=== PATIENT | female | born 1945 | race Caucasian/White ===

== ENCOUNTER 2022-07-12 12:33 | Emergency (ER) | payer MEDICARE ==
[2022-07-12 12:40] VITALS: TEMP 97.8
[2022-07-12] MEDS ORDERED: DIPH,PERTUS(ACELL)TETVAC-LF 0.5 ML VIAL IM ONE (12:52)
--- NOTE | 2022-07-12 12:55 | ED ---
Wound/Laceration HPI - General Chief Complaint: Wound/Laceration Stated Complaint: fall, facial lac Time Seen by Provider: 07/12/22 12:46 Source: patient, family, RN notes reviewed, old records reviewed Mode of arrival: wheelchair Limitations: no limitations - History of Present Illness Initial Comments: This is a well-appearing 77-year-old female that presents to the emergency room with complaints of a scalp laceration she sustained after she fell forward off the toilet hitting her head on the bathtub. Patient did not lose consciousness. She states that she had been sitting on the toilet for long period of time and her legs were asleep. When she stood up she had decreased sensation which caused the fall. She states that she has no complaints at this time. Does not take any blood thinners. -: hour(s) (1) Location: scalp Place: home Patient Tetanus UTD: No Context: accidental Associated Symptoms: none - Related Data Home Medications Medication Instructions Recorded Confirmed Cholecalciferol [Vitamin D3] 1,000 unit PO DAILY 04/13/16 04/13/16 Fish Oil/Dha/Epa [Fish Oil 1,200 1 cap PO DAILY 04/13/16 04/13/16 mg Fish Oil] Multivit-Min/Iron/Folic/Lutein 1 tab PO DAILY 04/13/16 04/13/16 [Centrum Silver Women Tablet] Previous Rx's Medication Instructions Recorded Ferrous Sulfate [Iron (65 MG 325 mg PO DAILY #30 tab 11/01/15 Elemental)] Atorvastatin [Lipitor] 40 mg PO HS 30 Days #30 tablet 07/12/22 amLODIPine [Norvasc] 5 mg PO DAILY 30 Days #30 tab 07/12/22 Allergies Allergy/AdvReac Type Severity Reaction Status Date / Time No Known Allergies Allergy Verified 04/13/16 11:16 Review of Systems ROS Statement: Those systems with pertinent positive or pertinent negative responses have been documented in the HPI. ROS Other: All systems not noted in ROS Statement are negative. 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 History of Any Multi-Drug Resistant Organisms: None Reported Past Surgical History: Appendectomy, Back Surgery, Joint Replacement, Orthopedic Surgery, Tonsillectomy Additional Past Surgical History / Comment(s): R knee arthroscopy, right knee replacement, BACK SURG X2, COLONOSCOPIES with last one done 12/11/15. EXC Benign LT Facial Tumor, D&C, R popliteal subcutaneous mass removed twice and ano ther has formed. Past Anesthesia/Blood Transfusion Reactions: No Reported Reaction Additional Past Anesthesia/Blood Transfusion Reaction / Comment(s): Pt has received blood without reaction. Past Psychological History: No Psychological Hx Reported Past Alcohol Use History: None Reported Past Drug Use History: None Reported - Past Family History Father Family Medical History: Cancer Additional Family Medical History / Comment(s): BRAIN, LUNG, LIVER, AND SPLEEN CANCER. Mother Family Medical History: Hypertension General Exam Limitations: no limitations General appearance: alert, in no apparent distress Head exam: Present: other (2 cm laceration mid frontal scalp) Eye exam: Present: normal appearance, EOMI. Absent: scleral icterus, conjunctival injection, periorbital swelling, periorbital tenderness ENT exam: Present: mucous membranes moist Neck exam: Absent: tenderness, meningismus Respiratory exam: Absent: respiratory distress, accessory muscle use Cardiovascular Exam: Present: regular rate Neurological exam: Present: alert, oriented X3 Expanded Patient oriented to: Present: person, place, time Speech: Present: fluid speech Eye Response: (4) open spontaneously Motor Response: (6) obeys commands Verbal Response: (5) oriented [place] Total: 15 Psychiatric exam: Present: normal affect, normal mood Skin exam: Present: warm, normal color, other (2 cm laceration mid frontal scalp minimal bleeding). Absent: cyanosis, diaphoretic, petechiae, pallor Course Vital Signs 07/12/22 07/12/22 12:37 14:30 Temperature 97.8 F Pulse Rate 94 80 Respiratory 20 18 Rate Blood Pressure 140/92 132/78 O2 Sat by Pulse 94 L 100 Oximetry Medical Decision Making - Medical Decision Making Patient fell forward off the toilet today hitting her head on the bathtub. No loss of consciousness. States that her legs fell asleep while sitting on the toilet which led to the fall. She sustained a laceration to her scalp. Bleeding is controlled. She is not on any blood thinners. She denies any other injuries. Family at bedside. Vital signs are stable. CT interpreted by me shows no evidence of fracture or foreign body. Radiologist impression no acute intracranial process. There is some mild ventricular white matter hypodensity likely on the basis of chronic white matter ischemic changes. No mass lesion evident. No acute intracranial hemorrhage. 3 pavithra were placed to close wound after copious saline irrigation. Patient has no focal neurological deficits. Discharged home. Prescription for atorvastatin amlodipine prescribed his patient states unable to get into her primary care doctor. Case discussed with Dr. Ventura Disposition Clinical Impression: Laceration Disposition: HOME SELF-CARE Condition: Good Additional Instructions: Keep wound clean and dry. Pavithra to be removed in 5-7 days. Watch for signs of infection including redness or drainage. Follow-up with the primary care doctor next week. Prescriptions: Atorvastatin [Lipitor] 40 mg PO HS 30 Days #30 tablet amLODIPine [Norvasc] 5 mg PO DAILY 30 Days #30 tab Is patient prescribed a controlled substance at d/c from ED?: No Referrals: None,Stated [Primary Care Provider] - 1-2 days Time of Disposition: 13:34
--- NOTE | 2022-07-12 13:31 | CT ---
EXAMINATION TYPE: CT brain wo con DATE OF EXAM: 07/12/2022 COMPARISON: INDICATION: Fall from toilet DLP: 1349.8 mGycm, Automated exposure control for dose reduction was used. CONTRAST: None CT of the brain is performed utilizing 3 mm thick sections through the posterior fossa and 3 mm thick sections through the remaining calvarium. Study is performed within 24 hours of arrival to the hosp ital. No abnormal hyperdensity is present to suggest an acute intracranial hemorrhage. No mass lesion is evident. No acute infarcts are evident. There is some mild periventricular white matter hypodensity, likely on the basis of chronic white matter ischemic changes Ventricles and sulci are appropriate for the patient age. Paranasal sinuses and mastoid air cells within the [id number] are clear. IMPRESSIONS: 1. No acute intracranial process. Follow-up MRI can be performed as clinically indicated. 2. Mild periventricular white matter ischemic type changes
[2022-07-12] MEDS ORDERED: BACITRACIN OINT 1 EACH PACKET TOPICAL ONE (13:32)
[2022-07-12 14:31] VITALS: BP 132/78; PULSE 80; RESP 18
== END 2022-07-12 14:31 | disposition home or self-care (01) ==
LOC: EC 12:33
DX: S01.01XA Laceration without foreign body of scalp, initial encounter (principal); M19.90 Unspecified osteoarthritis, unspecified site; Z79.899 Other long term (current) drug therapy; Z23 Encounter for immunization; W18.11XA Fall from or off toilet without subsequent striking against object, initial encounter
CPT/HCPCS: 12001; 70450; 90471; 90715; 99284

== ENCOUNTER 2023-08-28 18:44 | Inpatient (IN) | payer MEDICARE ==
--- NOTE | 2023-08-28 18:56 | ED ---
General Adult HPI - General Source: patient, family Mode of arrival: wheelchair Limitations: no limitations <Judie Sauceda - Last Filed: 08/28/23 18:55> <Cristian Ventura - Last Filed: 08/28/23 21:47> - General Stated complaint: SOB Time Seen by Provider: 08/28/23 18:55 - History of Present Illness Initial comments: 78-year-old female presenting with chief complaint of shortness of breath. She states that she went to urgent care earlier today and was told that she had fluid in her lungs. She then went to [facility] and states "they had no beds". She admits to lower extremity edema and history of CHF (Judie Sauceda) Dictation was produced using [employer] dictation software. please excuse any grammatical, word or spelling errors. Chief Complaint: 78-year-old female presents to the ER for alleges a new onset cardiomyopathy History of Present Illness: Patient 78-year-old female for the last several days she has been dealing with orthopnea along with lower extremity swelling. Patient has no history of cardiac disease. She initially went to an urgent care where they told her that she had fluid on her lungs and her legs. She was told to go to the emergency department. She initially reported to [facility] emergency department. They were told that there was no docs in the hospital and no beds for admission. Family was upset so he decided to leave come to our facility. Patient states she does not have any chest pain. States that she have some mild shortness of breath. States that it is worse when she lays flat. She also noted over the last 3 to 4 days that her legs were swollen. The ROS documented in this emergency department record has been reviewed and confirmed by me. Those systems with pertinent positive or negative responses have been documented in the HPI. All other systems are other negative and/or noncontributory. (Cristian Ventura) - Related Data Home Medications Medication Instructions Recorded Confirmed No Known Home Medications 08/28/23 08/28/23 Allergies Allergy/AdvReac Type Severity Reaction Status Date / Time No Known Allergies Allergy Verified 08/28/23 21:20 Review of Systems ROS Other: All systems not noted in ROS Statement are negative. <Judie Sauceda - Last Filed: 08/28/23 18:55> ROS Other: All systems not noted in ROS Statement are negative. <Cristian Ventura - Last Filed: 08/28/23 21:47> ROS Statement: Those systems with pertinent positive or pertinent negative responses have been documented in the HPI. 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 History of Any Multi-Drug Resistant Organisms: None Reported Past Surgical History: Appendectomy, Back Surgery, Joint Replacement, Orthopedic Surgery, Tonsillectomy Additional Past Surgical History / Comment(s): R knee arthroscopy, right knee replacement, BACK SURG X2, COLONOSCOPIES with last one done 12/11/15. EXC Benign LT Facial Tumor, D&C, R popliteal subcutaneous mass removed twice and another has formed. Past Anesthesia/Blood Transfusion Reactions: No Reported Reaction Additional Past Anesthesia/Blood Transfusion Reaction / Comment(s): Pt has received blood without reaction. Past Psychological History: No Psychological Hx Reported Past Alcohol Use History: None Reported Past Drug Use History: None Reported - Past Family History Father Family Medical History: Cancer Additional Family Medical History / Comment(s): BRAIN, LUNG, LIVER, AND SPLEEN CANCER. Mother Family Medical History: Hypertension <Judie Sauceda - Last Filed: 08/28/23 18:55> General Exam <Judie Sauceda - Last Filed: 08/28/23 18:55> <Cristian Ventura - Last Filed: 08/28/23 21:47> - General Exam Comments Initial Comments: Visual Physical Exam Vital signs reviewed General: Well-appearing, nontoxic, no acute distress. Head: Normocephalic, atraumatic Eyes: PERRLA, EOMI ENT: Airway patent Chest: Nonlabored breathing Skin: No visual rash, normal skin tone Neuro: Alert and oriented 3 Musculoskeletal: No gross abnormalities (Judie Sauceda) PHYSICAL EXAM: General Impression: Alert and oriented x3, not in acute distress HEENT: Normocephalic atraumatic, extra-ocular movements intact, pupils equal and reactive to light bilaterally, mucous membranes moist. Cardiovascular: Heart regular rate and rhythm Chest: Able to complete full sentences, no retractions, no tachypnea Abdomen: abdomen soft, non-tender, non-distended, no organomegaly Musculoskeletal: Pulses present and equal in all extremities, 2+ pitting edema to the bilateral lower extremities Motor: no focal deficits noted Neurological: CN II-XII grossly intact, no focal motor or sensory deficits noted Skin: Intact with no visualized rashes Psych: Normal affect and mood (Cristian Ventura) Course Vital Signs 08/28/23 08/28/23 19:03 19:57 Temperature 98.1 F Pulse Rate 90 80 Respiratory 20 18 Rate Blood Pressure 150/82 O2 Sat by Pulse 93 L 94 L Oximetry EKG Findings - EKG Comments: EKG Findings:: My EKG interpretation: Ventricular rate 80, sinus rhythm,. 156, cures 94, QTc 439. No MT prolongation, no QTC prolongation, no ST or T-wave changes noted. EKG compared to October 28, 2015 showing no changes. Overall, this EKG is unremarkable <Cristian Ventura - Last Filed: 08/28/23 21:47> Medical Decision Making <Judie Sauceda - Last Filed: 08/28/23 18:55> - Lab Data Result diagrams: 08/28/23 19:20 08/28/23 19:20 <Cristian Ventura - Last Filed: 08/28/23 21:47> - Medical Decision Making I performed the quick note portion of this visit, electronically signed Judie Sauceda PA-C (Judie Sauceda) Was pt. sent in by a medical professional or institution ([facility], OBSERVER HELPER, urgent care, hospital, or halfway...) When possible be specific @ -No Did you speak to anyone other than the patient for history (EMS, parent, family, police, friend...)? What history was obtained from this source @ -Family was at the bedside as discussed above Did you review nursing and triage notes (agree or disagree)? Why? @ -I reviewed and agree with nursing and triage notes Were old charts reviewed (outside hosp., previous admission, EMS record, old EKG, old radiological studies, urgent care reports/EKG's, halfway records)? Report findings @ -No old charts were reviewed Differential Diagnosis (chest pain, altered mental status, abdominal pain women, abdominal pain men, vaginal bleeding, musculoskeletal, weakness, fever, dyspnea, syncope, headache, dizziness, GI bleed, back pain, seizure, CVA, palpatations, mental health)? @ -Differential Dyspnea: Coronary syndrome, arrhythmia, tamponade, asthma, COPD, pulmonary embolism, pneumonia, pneumothorax, pulmonary effusion, anaphylaxis, diabetic ketoacidosis, flailed chest, pulmonary contusion, diaphragmatic rupture, anemia, neuromuscular, this is not meant to be an all-inclusive list. EKG interpreted by me (3pts min.). @ -See above X-rays interpreted by me (1pt min.). @ -Chest x-ray shows cardiomegaly and pulmonary vascular congestion CT interpreted by me (1pt min.). @ -None done U/S interpreted by me (1pt. min.). @ -None done What testing was considered but not performed or refused? (CT, X-rays, U/S, labs)? Why? @ -None What meds were considered but not given or refused? Why? @ -None Did you discuss the management of the patient with other professionals (professionals i.e. , PA, OBSERVER HELPER, lab, RT, psych nurse, social worker assistant, scrap collector, teacher, health promotion officer, pillowcase cutter)? Give summary @ -Case discussed with hospitalist for admission Was smoking cessation discussed for >3mins.? @ -No Was critical care preformed (if so, how long)? @ -yes, 33 minutes Were there social determinants of health that impacted care today? How? (Homelessness, low income, unemployed, alcoholism, drug addiction, transportation, low edu. Level, literacy, decrease access to med. care, [facility], rehab)? @ -No Was there de-escalation of care discussed even if they declined (Discuss DNR or withdrawal of care, Hospice)? DNR status @ -No What co-morbidities impacted this encounter? (DM, HTN, Smoking, COPD, CAD, Cancer, CVA, ARF, Chemo, Hep., AIDS, mental health diagnosis, sleep apnea, morbid obesity)? @ -None Was patient admitted / discharged? Hospital course, mention meds given and route, prescriptions, significant lab abnormalities, going to OR and other p ertinent info. @ -78-year-old female presents to the emergency department for shortness of breath. She has symptoms of heart failure. Vital signs are stable. Laboratory evaluation obtained. Troponin elevated 0.048 with a BNP of 6890. Patient has no history of cardiac disease. Clinical presentation consistent with new onset cardiomyopathy. Patient admitted given aspirin and started on heparin given Lasix. Will be admitted with consultation to cardiology. Undiagnosed new problem with uncertain prognosis? @ -No Drug Therapy requiring intensive monitoring for toxicity (Heparin, Nitro, In sulin, Cardizem)? @ -No Were any procedures done? @ -No Diagnosis/symptom? Acute, or Chronic, or Acute on Chronic? Uncomplicated (without systemic symptoms) or Complicated (systemic symptoms)? @ -New onset cardiomyopathy Side effects of treatment? @ -No Exacerbation, Progression, or Severe Exacerbation? @ -No Poses a threat to life or bodily function? How? (Chest pain, [place], [place], pneumonia, PE, COPD, DKA, ARF, appy, cholecystitis, CVA, Diverticulitis, Homicidal, Suicidal, threat to staff... and all critical care pts) @ -yes (Cristian Ventura) - Lab Data Lab Results 08/28/23 08/28/23 08/28/23 Range/Units 19:20 19:20 19:20 WBC 10.5 (3.8-10.6) k/uL RBC 4.53 (3.80-5.40) m/uL Hgb 14.4 (11.4-16.0) gm/dL Hct 43.7 (34.0-46.0) % MCV 96.4 (80.0-100.0) fL MCH 31.8 (25.0-35.0) pg MCHC 33.0 (31.0-37.0) g/dL RDW 13.2 (11.5-15.5) % Plt Count 214 (150-450) k/uL MPV 11.1 Neutrophils % 54 % Lymphocytes % 37 % Monocytes % 6 % Eosinophils % 1 % Basophils % 1 % Neutrophils # 5.7 (1.3-7.7) k/uL Lymphocytes # 3.9 (1.0-4.8) k/uL Monocytes # 0.6 (0-1.0) k/uL Eosinophils # 0.1 (0-0.7) k/uL Basophils # 0.1 (0-0.2) k/uL PT 11.4 (10.0-12.5) sec INR 1.0 (<1.2) APTT 28.1 (22.0-30.0) sec Sodium 142 (137-145) mmol/L Potassium 3.5 (3.5-5.1) mmol/L Chloride 109 H (98-107) mmol/L Carbon Dioxide 24 (22-30) mmol/L Anion Gap 9 mmol/L BUN 12 (7-17) mg/dL Creatinine 0.51 L (0.52-1.04) mg/dL Est GFR (CKD-EPI)AfAm >90 (>60 ml/min/1.73 sqM) Est GFR (CKD-EPI)NonAf >90 (>60 ml/min/1.73 sqM) Glucose 93 (74-99) mg/dL Plasma Lactic Acid [place] (0.7-2.0) mmol/L Calcium 9.4 (8.4-10.2) mg/dL Magnesium 1.9 (1.6-2.3) mg/dL Total Bilirubin 0.9 (0.2-1.3) mg/dL AST 27 (14-36) U/L ALT 10 (4-34) U/L Alkaline Phosphatase 76 (38-126) U/L Troponin I (0.000-0.034) ng/mL NT-Pro-B Natriuret Pep 6890 pg/mL Total Protein 7.2 (6.3-8.2) g/dL Albumin 4.2 (3.5-5.0) g/dL 08/28/23 08/28/23 Range/Units 19:20 19:20 WBC (3.8-10.6) k/uL RBC (3.80-5.40) m/uL Hgb (11.4-16.0) gm/dL Hct (34.0-46.0) % MCV (80.0-100.0) fL MCH (25.0-35.0) pg MCHC (31.0-37.0) g/dL RDW (11.5-15.5) % Plt Count (150-450) k/uL MPV Neutrophils % % Lymphocytes % % Monocytes % % Eosinophils % % Basophils % % Neutrophils # (1.3-7.7) k/uL Lymphocytes # (1.0-4.8) k/uL Monocytes # (0-1.0) k/uL Eosinophils # (0-0.7) k/uL Basophils # (0-0.2) k/uL PT (10.0-12.5) sec INR (<1.2) APTT (22.0-30.0) sec Sodium (137-145) mmol/L Potassium (3.5-5.1) mmol/L Chloride (98-107) mmol/L Carbon Dioxide (22-30) mmol/L Anion Gap mmol/L BUN (7-17) mg/dL Creatinine (0.52-1.04) mg/dL Est GFR (CKD-EPI)AfAm (>60 ml/min/1.73 sqM) Est GFR (CKD-EPI)NonAf (>60 ml/min/1.73 sqM) Glucose (74-99) mg/dL Plasma Lactic Acid [place] 1.2 (0.7-2.0) mmol/L Calcium (8.4-10.2) mg/dL Magnesium (1.6-2.3) mg/dL Total Bilirubin (0.2-1.3) mg/dL AST (14-36) U/L ALT (4-34) U/L Alkaline Phosphatase (38-126) U/L Troponin I 0.048 H* (0.000-0.034) ng/mL NT-Pro-B Natriuret Pep pg/mL Total Protein (6.3-8.2) g/dL Albumin (3.5-5.0) g/dL Disposition <Judie Sauceda - Last Filed: 08/28/23 18:55> Is patient prescribed a controlled substance at d/c from ED?: No Decision Time: 21:46 <Cristian Ventura - Last Filed: 08/28/23 21:47> Clinical Impression: Congestive heart failure Disposition: ADMITTED IP TO THIS HOSP Condition: Fair Referrals: None,Stated [Primary Care Provider] - 1-2 days
[2023-08-28 19:36] LABS: Basophils # (A) 0.1 k/uL (0-0.2); Basophils % (A) 1 %; Eosinophils # (A) 0.1 k/uL (0-0.7); Eosinophils % (A) 1 %; HCT 43.7 % (34.0-46.0); HGB 14.4 gm/dL (11.4-16.0); Lymphocytes # (A) 3.9 k/uL (1.0-4.8); Lymphocytes % (A) 37 %; MCH 31.8 pg (25.0-35.0); MCV 96.4 fL (80.0-100.0); Mean Platelet Volume 11.1; Monocytes # (A) 0.6 k/uL (0-1.0); Monocytes % (A) 6 %; Neutrophils # (A) 5.7 k/uL (1.3-7.7); Neutrophils % (A) 54 %; Platelet Count 214 k/uL (150-450); RBC 4.53 m/uL (3.80-5.40); RDW 13.2 % (11.5-15.5); WBC 10.5 k/uL (3.8-10.6)
[2023-08-28 19:45] LABS: Partial Thromboplastin Time 28.1 sec (22.0-30.0); Prothrombin Time 11.4 sec (10.0-12.5)
[2023-08-28 20:03] LABS: ALT 10 U/L (4-34); African American GFR (CKD) >90 (>60 ml/min/1.73 sqM); Albumin 4.2 g/dL (3.5-5.0); Anion Gap 9 mmol/L; Blood Urea Nitrogen 12 mg/dL (7-17); Calcium 9.4 mg/dL (8.4-10.2); Carbon Dioxide 24 mmol/L (22-30); Chloride 109 mmol/L (98-107); Glucose 93 mg/dL (74-99); Non-African American GFR(CKD) >90 (>60 ml/min/1.73 sqM); Sodium 142 mmol/L (137-145); Total Bilirubin 0.9 mg/dL (0.2-1.3); Total Protein 7.2 g/dL (6.3-8.2)
[2023-08-28 20:08] LABS: AST 27 U/L (14-36); Alkaline Phosphatase 76 U/L (38-126); Potassium 3.5 mmol/L (3.5-5.1)
[2023-08-28 20:09] LABS: Magnesium 1.9 mg/dL (1.6-2.3)
[2023-08-28 20:12] LABS: NT-Pro-B-Type Natriuretic Pept 6890 pg/mL
[2023-08-28] MEDS ORDERED: HEPARIN SODIUM 1,000 UN/ML (10ML VL) IV PRN (21:24)
--- NOTE | 2023-08-28 21:26 | XR ---
EXAMINATION TYPE: XR chest 2V DATE OF EXAM: 08/28/2023 9:23 PM CLINICAL INDICATION:Female, 78 years old with history of difficulty breathing; [facility] COMPARISON: Chest radiographs from 10/28/2015. TECHNIQUE: XR chest 2V Frontal and lateral views of the chest. FINDINGS: Lungs/Pleura: No evidence of focal consolidation or pneumothorax. Blunting of the costophrenic angles is present. Pulmonary vascularity: Pulmonary vascular congestion. Heart/mediastinum: Cardiomediastinal silhouette is enlarged and stable. Atherosclerotic calcificatio ns are seen in the aorta. Musculoskeletal: No acute osseous pathology. There is lower spine fixation hardware is present. IMPRESSION: Cardiomegaly, pulmonary vascular congestion and bilateral pleural effusions. Correlate with BNP for c ongestive heart failure.
[2023-08-28] MEDS: FUROSEMIDE 10 MG/ML 4 ML VIAL IV SCH (21:47)
[2023-08-28] MEDS: HEPARIN SODIUM 1,000 UN/ML (10ML VL) IV ONE (22:34)
[2023-08-28] MEDS: HEPARIN SOD,PORK IN 0.45% NACL 25,000 UNIT in 0.45% NACL 1 250ML.BAG IV SCH (22:35)
[2023-08-28] MEDS: ASPIRIN 81 MG PO STA (22:37)
[2023-08-28] MEDS: FUROSEMIDE 10 MG/ML 4 ML VIAL IV STA (22:37)
[2023-08-28] MEDS ORDERED: NALOXONE 0.4 MG/ML 1 ML VIAL IV PRN (23:57)
[2023-08-28] MEDS ORDERED: ALPRAZolam 0.25 MG TAB PO PRN (23:57)
--- NOTE | 2023-08-28 23:57 | P.HPIM ---
History of Present Illness H&P Date: 08/28/23 Chief Complaint: shortness of breath 78 year old female with history of significant GI bleed, last episode was 8 years ago patient coming in complaining of exertional dyspnea over past 5 days, progressive in nature, now with minimal exertion, may be even at rest she does n ot feel comfortable. denies any associated chest pain , denies any cardiac history. no recent cardiac workup , she had URI symptoms about 1 month ago, which she recovered from , but then started having this exertional dyspnea now. she also noticed increased swelling of bilateral legs. denies any recent travel or hospital stay denies any history of blood clots denies fever, chills, cough, sore throat, nausea , vomiting , abd pain, changes in bowel or urinary habits. denies any GI bleeding shannon is a heavy smoker, but denies any history of COPD , she is not using any home oxygen Patient admits to heavy smoking denies any illicit drugs or heavy alcohol she denies any fever, chills, cough, sore throat, chest pain , trouble breathing , nausea , vomiting, abd pain , changes in urinary or bowel habits. she denies tobacco smoking, she claims that she quit meth 3 months ago , and alcohol 1 year. review of systems Pertinent positives as noted in HPI. All other systems were reviewed and are negative on exam Constitutional: No acute distress, conversant, pleasant Eyes: Anicteric sclerae, moist conjunctiva, Pupils equal round reactive to light ENMT: NC/AT Oropharynx clear, no erythema, or exudates Neck: Supple, no masses, or JVD No carotid bruits No thyromegaly Lungs: Diminished breath sounds at lung bases right worse than left with diffuse inspiratory rales Clear to percussion Normal respiratory effort, no accessory muscle use Cardiovascular: Heart seems to have a lot of ectopic beats when compared to the tracing Systolic murmurs, no gallops, or rubs +3 bilateral peripheral leg edema Abdominal: Soft Nontender, no guarding, rebound or rigidity Abdomen moving with respiration Normoactive bowel sounds No hepatomegaly, No splenomegaly No palpable mass No abdominal wall hernia noted Extremities: No digital cyanosis No clubbing Pedal pulses intact and symmetrical Radial pulses intact and symmetrical No calf tenderness Psychiatric: Alert and oriented to person, place and time Appropriate affect fair judgement Neuro Muscles Strength 5/5 in all 4 extremities Sensation to light touch grossly present throughout Cranial nerves II-XII grossly intact Lymphatics: no palpable cervical or supraclavicular lymph nodes Past Medical History Past Medical History: GI Bleed, Osteoarthritis (OA) Additional Past Medical History / Comment(s): Diverticulosis of colon; HX lower GI BLEED 2010, AND ALSO 10/28/15 W/ ANEMIA and blood transfusion, 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 History of Any Multi-Drug Resistant Organisms: None Reported Past Surgical History: Appendectomy, Back Surgery, Joint Replacement, Orthopedic Surgery, Tonsillectomy Additional Past Surgical History / Comment(s): R knee arthroscopy, right knee replacement, BACK SURG X2, COLONOSCOPIES with last one done 12/11/15. EXC Benign LT Facial Tumor, D&C, R popliteal subcutaneous mass removed twice and another has formed. Past Anesthesia/Blood Transfusion Reactions: No Reported Reaction Additional Past Anesthesia/Blood Transfusion Reaction / Comment(s): Pt has received blood without reaction. Past Psychological History: No Psychological Hx Reported Smoking Status: Current every day smoker Past Alcohol Use History: None Reported Past Drug Use History: None Reported - Past Family History Father Family Medical History: Cancer Additional Family Medical History / Comment(s): BRAIN, LUNG, LIVER, AND SPLEEN CANCER. Mother Family Medical History: Hypertension Medications and Allergies Home Medications Medication Instructions Recorded Confirmed Type No Known Home Medications 08/28/23 08/28/23 History Allergies Allergy/AdvReac Type Severity Reaction Status Date / Time No Known Allergies Allergy Verified 08/28/23 21:20 Physical Exam Vitals: Vital Signs Temp Pulse Resp BP Pulse Ox 08/28/23 19:57 80 18 94 L 08/28/23 19:03 98.1 F 90 20 150/82 93 L Intake and Output 08/28/23 08/28/23 08/29/23 14:59 22:59 06:59 Other: Weight 77.111 kg Results CBC & Chem 7: 08/28/23 19:20 08/28/23 19:20 Labs: Abnormal Lab Results - Last 24 Hours (Table) 08/28/23 08/28/23 Range/Units 19:20 19:20 Chloride 109 H (98-107) mmol/L Creatinine 0.51 L (0.52-1.04) mg/dL Troponin I 0.048 H* (0.000-0.034) ng/mL Assessment and Plan Assessment: 78-year-old female with hypertension and heavy smoking coming in with new onset shortness of breath over the past 5 days been progressive in nature with bilateral leg edema I discussed case with ED doctor accepted the admission for fluid overload with possible underlying new onset CHF and acute coronary s yndrome with anticipated length of stay more than 2 midnights Exertional dyspnea Chest x-ray showing pulmonary edema with bilateral pleural effusion Elevated BNP 6890 Elevated troponin 0.048 Rule out NSTEMI Trend troponins Start heparin drip Aspirin 325 mg and continue with 81 mg daily, atorvastatin 40 mg p.o. daily Monitor vital signs Daily weight Fluid restrictions 2 L/day Check echocardiogram Cardiology consult Blood work otherwise unremarkable white count 10.5 hemoglobin 14 Sodium 142 potassium 3.5 BUN 12 creatinine 0.5 Full code- DVT prophylaxis heparin drip for ACS protocol
[2023-08-29] MEDS: NICOTINE 14MG/24HR PATCH TRANSDERM SCH (08:07)
[2023-08-29] MEDS: ATORVASTATIN 40 MG TAB PO SCH (08:07)
[2023-08-29] MEDS: ASPIRIN 81 MG PO SCH (08:07)
[2023-08-29 08:51] LABS: Chol/HDL Ratio 5.14 Ratio
[2023-08-29 08:52] LABS: LDL Cholesterol,Calculated 174.9 mg/dL (0.0-131.0)
[2023-08-29] MEDS: carvediloL 3.125 MG TAB PO SCH (09:38)
[2023-08-29] MEDS: FUROSEMIDE 10 MG/ML 4 ML VIAL IV SCH (09:39)
[2023-08-29] MEDS: HEPARIN SODIUM,PORCINE 5,000 UNIT/ML 1 ML VIAL SQ SCH (09:40)
--- NOTE | 2023-08-29 10:57 | P.CRDCN ---
History of Present Illness History of present illness: HISTORY OF PRESENT ILLNESS: This is a 78-year-old female with a past medical history significant for GI bleed, osteoarthritis, and nicotine dependence. 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 We have been asked to see the patient in consultation for new cardiomyopathy. Patient examined at the bedside in the emergency room. The patient presented to the hospital with a chief complaint of shortness of breath for the past week. She denied any chest pain or pressure. She also reports increased lower extremity edema. Patient son is at the bedside and believes she has a history of hypertension and hyperlipidemia but she has stopped taking all of her medications about 3 years ago. She also has not been following with a PCP for about 3 years. Patient is a current cigarette smoker and smokes about 1 pack/day. She denies any alcohol use. DIAGNOSTICS: - EKG reveals sinus mechanism with PVCs. - Chest xray cardiomegaly, pulmonary vascular congestion and bilateral pleural effusions. - Laboratory data: WBC 10.5. Hemoglobin 14.4. Platelet count 214. Sodium 142. Potassium 3.5. BUN 12. Creatinine 0.51. Lactic acid 1.2. Troponin 0.048. 0.051. 0.056. proBNP 6890. - Current home cardiac medications include none. REVIEW OF SYSTEMS: At the time of my exam: CONSTITUTIONAL: Denies fever or chills. HEENT: Denies blurred vision, vision changes, or eye pain. Denies hemoptysis CARDIOVASCULAR: Denies chest pain. Denies orthopnea. Denies PND. Denies palpitations RESPIRATORY: Reports shortness of breath. GASTROINTESTINAL: Denies abdominal pain. Denies nausea or vomiting. HEMATOLOGIC: Denies bleeding disorders. GENITOURINARY: Denies any blood in urine. SKIN: Denies pruitis. Denies rash. PHYSICAL EXAM: VITAL SIGNS: Reviewed. GENERAL: Well-developed in no acute distress. HEENT: Head is normocephalic. Pupils are equal, round. Sclerae anicteric. Mucous membranes of the mouth are moist. + JVD LUNGS: Respirations even and unlabored. Lungs with bilateral crackles HEART: Regular rate and rhythm. S1 and S2 heard. ABDOMEN: Soft. Nondistended. Nontender. EXTREMITIES: Normal range of motion. No clubbing or cyanosis. Peripheral pulses intact. 2+ lower extremity edema NEUROLOGIC: Awake and alert. Oriented x 3. ASSESSMENT: Shortness of breath Acute heart failure with unknown EF, echo pending Bilateral pleural effusions Elevated troponins, flat, likely type II AL History of GI bleeding Osteoarthritis Nicotine dependence, patient smokes 1 pack/day Questionable history of hypertension and hyperlipidemia per family, not taking medications in over 3 years PLAN: Obtain 2D echo to assess cardiac structure and function Continue aspirin and atorvastatin Begin carvedilol 3.125 mg twice a day Begin losartan 50 mg at night Increase IV Lasix to 40 mg every 8 hours Daily weights, accurate intake and output, and monitoring of kidney function Smoking cessation recommended Further recommendations pending patient course Nurse practitioner note has been reviewed by physician. Signing provider agrees with the documented findings, assessment, and plan of care documented by ASSISTANT WOMEN'S TENNIS COACH as a scribe. 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 History of Any Multi-Drug Resistant Organisms: None Reported Past Surgical History: Appendectomy, Back Surgery, Joint Replacement, Orthopedic Surgery, Tonsillectomy Additional Past Surgical History / Comment(s): R knee arthroscopy, right knee replacement, BACK SURG X2, COLONOSCOPIES with last one done 12/11/15. EXC Benign LT Facial Tumor, D&C, R popliteal subcutaneous mass removed twice and another has formed. Past Anesthesia/Blood Transfusion Reactions: No Reported Reaction Additional Past Anesthesia/Blood Transfusion Reaction / Comment(s): Pt has received blood without reaction. Past Psychological History: No Psychological Hx Reported Additional Psychological History / Comment(s): Pt resides with her spouse. She is independent. Smoking Status: Current every day smoker Past Alcohol Use History: None Reported Additional Past Alcohol Use History / Comment(s): SMOKED 45 YEARS, 1PPD. Past Drug Use History: None Reported - Past Family History Father Family Medical History: Cancer Additional Family Medical History / Comment(s): BRAIN, LUNG, LIVER, AND SPLEEN CANCER. Mother Family Medical History: Hypertension Medications and Allergies Home Medications Medication Instructions Recorded Confirmed Type No Known Home Medications 08/28/23 08/28/23 History Allergies Allergy/AdvReac Type Severity Reaction Status Date / Time No Known Allergies Allergy Verified 08/28/23 21:20 Physical Exam Vitals: Vital Signs Temp Pulse Pulse Resp BP BP Pulse Ox 08/29/23 08:09 90 20 148/89 95 08/29/23 07:54 95 08/29/23 07:40 99.4 F 71 22 142/60 95 08/29/23 04:00 98.2 F 101 H 22 147/89 92 L 08/29/23 01:22 81 16 140/80 93 L 08/28/23 23:20 77 18 142/84 93 L 08/28/23 19:57 80 18 94 L 08/28/23 19:03 98.1 F 90 20 150/82 93 L Intake and Output 08/28/23 08/29/23 08/29/23 22:59 06:59 14:59 Other: Voiding Method Bedpan # Voids 4 Weight 77.111 kg 77.111 kg Results 08/28/23 19:20 08/28/23 19:20 Cardiac Enzymes 08/28/23 08/28/23 08/29/23 Range/Units 19:20 19:20 00:44 AST 27 (14-36) U/L Troponin I 0.048 H* 0.051 H* (0.000-0.034) ng/mL 08/29/23 Range/Units 02:56 AST (14-36) U/L Troponin I 0.056 H* (0.000-0.034) ng/mL Coagulation 08/28/23 08/29/23 Range/Units 19:20 02:56 PT 11.4 (10.0-12.5) sec APTT 28.1 72.3 H (22.0-30.0) sec CBC 08/28/23 Range/Units 19:20 WBC 10.5 (3.8-10.6) k/uL RBC 4.53 (3.80-5.40) m/uL Hgb 14.4 (11.4-16.0) gm/dL Hct 43.7 (34.0-46.0) % Plt Count 214 (150-450) k/uL Comprehensive Metabolic Panel 08/28/23 Range/Units 19:20 Sodium 142 (137-145) mmol/L Potassium 3.5 (3.5-5.1) mmol/L Chloride 109 H (98-107) mmol/L Carbon Dioxide 24 (22-30) mmol/L BUN 12 (7-17) mg/dL Creatinine 0.51 L (0.52-1.04) mg/dL Glucose 93 (74-99) mg/dL Calcium 9.4 (8.4-10.2) mg/dL AST 27 (14-36) U/L ALT 10 (4-34) U/L Alkaline Phosphatase 76 (38-126) U/L Total Protein 7.2 (6.3-8.2) g/dL Albumin 4.2 (3.5-5.0) g/dL Current Medications Generic Name Dose Route Start Last Admin Trade Name Freq PRN Reason Stop Dose Admin Acetaminophen 650 mg 08/28/23 23:57 Acetaminophen Tab 325 Mg Tab PO Q6HR PRN Mild Pain or Fever > 100.5 Alprazolam 0.25 mg 08/28/23 23:57 Alprazolam 0.25 Mg Tab PO Q6HR PRN Anxiety Aspirin 81 mg 08/29/23 09:00 08/29/23 08:07 Aspirin 81 Mg PO 81 mg DAILY HERIBERTO Administration Atorvastatin Calcium 40 mg 08/29/23 09:00 08/29/23 08:07 Atorvastatin 40 Mg Tab PO 40 mg DAILY HERIBERTO Administration Furosemide 40 mg 08/28/23 21:45 08/28/23 21:47 Furosemide 10 Mg/Ml 4 Ml Vial IV Not Given Q12H [facility] Heparin Sodium (Porcine) 0 unit 08/28/23 21:24 Heparin Sodium 1,000 Un/Ml (10ml Vl) IV PER PROTOCOL PRN Low PTT Protocol Heparin Sodium/Sodium Chloride 250 mls @ 9.253 mls/hr 08/28/23 21:30 08/28/23 22:35 25,000 unit/ Sodium Chloride IV 12 units/kg/hr .Q24H HERIBERTO 9.253 mls/hr Administration Protocol 12 UNITS/KG/HR Melatonin 3 mg 08/28/23 23:57 Melatonin 3 Mg Tablet PO HS PRN Insomnia Naloxone HCl 0.2 mg 08/28/23 23:57 Naloxone 0.4 Mg/Ml 1 Ml Vial IV Q2M PRN Opioid Reversal Nicotine 1 patch 08/29/23 09:00 08/29/23 08:07 Nicotine 14mg/24hr Patch TRANSDERM Not Given DAILY [facility] Ondansetron HCl 4 mg 08/28/23 23:57 Ondansetron 4 Mg/2 Ml Vial IVP Q8HR PRN Nausea And Vomiting Intake and Output 08/28/23 08/29/23 08/29/23 22:59 06:59 14:59 Other: Voiding Method Bedpan # Voids 4 Weight 77.111 kg 77.111 kg 08/28/23 19:20 08/28/23 19:20
[2023-08-29 11:35] LABS: African American GFR (CKD) >90 (>60 ml/min/1.73 sqM); Anion Gap 12 mmol/L; Blood Urea Nitrogen 10 mg/dL (7-17); Calcium 9.1 mg/dL (8.4-10.2); Carbon Dioxide 27 mmol/L (22-30); Chloride 106 mmol/L (98-107); Glucose 113 mg/dL (74-99); Magnesium 1.7 mg/dL (1.6-2.3); Non-African American GFR(CKD) >90 (>60 ml/min/1.73 sqM); Sodium 145 mmol/L (137-145)
[2023-08-29 11:46] LABS: Glucose,Whole Blood 112 mg/dL (70-110)
--- NOTE | 2023-08-29 11:46 | P.PN ---
Subjective Progress Note Date: 08/29/23 Hospital course: Patient is a 78-year-old female with a past medical history of diverticulosis with recurrent GI bleeds resulting in significant anemia and need for blood transfusions, osteoarthritis degenerative arthritis lumbar sacral spine, and nicotine dependence. She presented to the emergency department on 08/28/2023 secondary to shortness of breath. Upon arrival to the emergency department patient underwent full evaluation. Vital signs upon arrival show blood pressure 150/82, heart rate 90, respiratory rate 20, temp 98.1 F, and SpO2 of 93% on room air. EKG completed showing normal sinus rhythm at 80 bpm with occasional PVCs and PACs and T wave inversion inferior leads II, III, and aVF. Chest x-ray completed showing cardiomegaly with pulmonary vascular congestion and bilateral pleural effusions. Labs completed and reviewed. CBC unremarkable. Coagulation profile normal findings. BMP showing mild hyperchloremia with chloride of 109 otherwise normal findings. Lactic acid 1.2. Magnesium 1.9. Liver profile unremarkable. Troponin elevated at 0.048 with proBNP of 6890. Patient started on low intensity heparin infusion and admitted under our services with consultation to cardiology. Physical exam: Patient seen and fully evaluated at bedside. Patient was eating her breakfast sitting up in chair. She remains on supplemental oxygen 3 L maintaining SpO2 of 93%. Patient currently reports breathing much better and denies having any shortness of breath, headache, lightheadedness, dizziness, chest pain, palpitations, or any other complaints. Patient does report experiencing exertional dyspnea with minimal movement. Vital signs reviewed and stable. General: Nontoxic, no distress and appears stated age. Derm: Skin warm and dry, normal coloration for ethnicity. Head: Atraumatic, normocephalic and symmetric. Eyes: EOMs intact, no lid lag, and anicteric sclera Mouth: no lip lesions, mucus membranes moist Cardiovascular: regular rate and rhythm with normal S1S2, systolic murmur, positive posterior tibial pulses bilaterally, and cap refill < 2 seconds. Lungs: Respirations even, regular, and unlabored. Lungs slightly diminished with bibasilar crackles. No rhonchi, no rales, no wheezing, and no accessory muscle usage. Abdominal: soft, nontender to palpation, no guarding, no appreciable organomegaly Ext: ROM intact. No gross muscle atrophy, 2+ pitting bilateral lower extremity edema, no contractures Neuro: Speech clear, face symmetrical and CN II-XII grossly intact with no noted focal neuro deficits Psych: Alert and oriented to person, place, time, and situation. Appropriate and pleasant affect. Assessment and Plan of Care: Elevated troponins Congestive heart failure, new onset unclear type pending echocardiogram results -Cardiology consulted -Continuous telemetry monitoring -Troponins trended resulting at 0.048, 0.051, and 0.056 -Continue heparin infusion, PTT therapeutic at 72.3 seconds, will continue to monitor for goal therapeutic range of 44 to 79 seconds. -ProBNP -Daily weights -Close monitoring of I's and O's -Cardiac diet -Continue Lasix 40 mg IVP every 12 hours -Continue aspirin 81 mg daily and atorvastatin 40 mg daily -Continued close monitoring of electrolytes while diuresing. -Echocardiogram to be completed Data and imaging reviewed: -Troponins trended resulting at 0.048, 0.051, and 0.056. -Vital signs reviewed. Blood pressure 148/89, heart rate 90, respiratory rate 20, temp 98.0 F, and SpO2 of 94% on 3 L. CODE STATUS: Full code DVT prophylaxis: Heparin infusion Anticipated discharge date: Clinical course to determine Anticipated discharge place: Clinical course to determine Patient was seen independently by Nurse Pracitioner. This document was prepared using [employer] dictation software. Please allow for errors in sterilization specialist, while rare they do occur. Virgilio Lamas NP rendered care for this patient independently, reviewed the f indings and plan as documented in the note above. I did not physically speak with or examine the patient on this date. Objective - Vital Signs Vital signs: Vital Signs Temp 99.4 F 08/29/23 07:40 Pulse 90 08/29/23 08:09 Resp 20 08/29/23 08:09 BP 148/89 08/29/23 08:09 Pulse Ox 95 08/29/23 08:09 FiO2 Intake & Output 08/28/23 08/29/23 08/29/23 18:59 06:59 18:59 Weight 77.111 kg Other: Voiding Method Bedpan # Voids 4 - Labs CBC & Chem 7: 09/01/23 07:38 09/01/23 07:38 Labs: Abnormal Lab Results - Last 24 Hours (Table) 08/28/23 08/28/23 08/29/23 Range/Units 19:20 19:20 00:44 APTT (22.0-30.0) sec Chloride 109 H (98-107) mmol/L Creatinine 0.51 L (0.52-1.04) mg/dL Troponin I 0.048 H* 0.051 H* (0.000-0.034) ng/mL 08/29/23 08/29/23 Range/Units 02:56 02:56 APTT 72.3 H (22.0-30.0) sec Chloride (98-107) mmol/L Creatinine (0.52-1.04) mg/dL Troponin I 0.056 H* (0.000-0.034) ng/mL
[2023-08-29 12:14] LABS: African American GFR (CKD) >90 (>60 ml/min/1.73 sqM); Anion Gap 9 mmol/L; Blood Urea Nitrogen 12 mg/dL (7-17); Calcium 8.9 mg/dL (8.4-10.2); Carbon Dioxide 30 mmol/L (22-30); Chloride 105 mmol/L (98-107); Glucose 122 mg/dL (74-99); Magnesium 1.7 mg/dL (1.6-2.3); Non-African American GFR(CKD) >90 (>60 ml/min/1.73 sqM); Sodium 144 mmol/L (137-145)
--- NOTE | 2023-08-29 13:06 | CT ---
EXAMINATION TYPE: CT brain wo con CT DLP: 11 8 7 mGycm, Automated exposure control for dose reduction was used. DATE OF EXAM: 08/29/2023 12:53 PM COMPARISON: 07/12/2022. CLINICAL INDICATION:Female, 78 years old with history of confusion, hallucinations, TECHNIQUE: Brain: Axial CT images of the brain were obtained with coronal and sagittal reformats created and rev iewed. Contrast used: None. Oral contrast used: None. FINDINGS: Brain: Extra-axial spaces: No abnormal extra-axial fluid collections. Ventricular system: Dilatation in proportion to cerebral atrophy. Cerebral parenchyma: Cerebral atrophy. No acute intraparenchymal hemorrhage or mass effect. The brooks -white junction is well differentiated. Scattered hypoattenuating areas are seen within the white mat ter. Cerebellum: Unremarkable. Mass effect: No evidence of midline shift. Intracranial vasculature: Atherosclerotic calcifications of the intracranial vessels. Soft tissues: Normal. Calvarium/osseous structures: No depressed skull fracture. Paranasal sinuses and mastoid air cells: Mild scattered paranasal sinus disease. Visualized orbits: Bilaterally aphakia. IMPRESSION: 1. No acute intracranial process. 2. Nonspecific white matter changes, likely secondary to chronic small vessel ischemic disease.
[2023-08-29] MEDS: ACETAMINOPHEN TAB 325 MG TAB PO PRN (16:54)
[2023-08-29] MEDS: KETOROLAC 15 MG/ML 1 ML VIAL IVP STA (17:26)
[2023-08-29] MEDS: POTASSIUM CHLORIDE ER 20 MEQ TAB.ER PO STA (17:26)
[2023-08-29] MEDS: MAGNESIUM SULFATE-D5W PMX 1 GM in DEXTROSE/WATER 1 100ML.BAG IVPB SCH (17:26)
--- NOTE | 2023-08-29 17:52 | CA ---
Transthoracic Echo Report Name: Adelita Peter Age: 78 Gender: F : 1945 Exam Date: 08/29/2023 16:05 Exam Location: [place] Echo Ht (in): 62 Wt (lb): 170 Ordering Physician: George Montemayor MD Attending/Referring Phys: [id number], Sim Motor Bike Mechanic Henrietta Gardner RDCS Procedure CPT: Indications: chf Cardiac Hx: Technical Quality: Technically difficult study Contrast 1: Definity Total Dose (mL): 2 Contrast 2: Total Dose (mL): MEASUREMENTS (Male / Female) Normal Values 2D ECHO LV Diastolic Diameter PLAX 5.2 cm 4.2 - 5.9 / 3.9 - 5.3 cm LV Systolic Diameter PLAX 4.2 cm IVS Diastolic Thickness 1.5 cm 0.6 - 1.0 / 0.6 - 0.9 cm LVPW Diastolic Thickness 1.8 cm 0.6 - 1.0 / 0.6 - 0.9 cm LV Relative Wall Thickness 0.6 RV Internal Dim ED PLAX 3.9 cm LVOT Diameter 1.8 cm LA Volume 120.4 cm??? 18 - 58 / 22 - 52 cm??? LA Volume Index 64.5 cm???/m??? 16 - 28 cm???/m??? M-MODE Aortic Root Diameter MM 3.6 cm LA Systolic Diameter MM 3.4 cm LA Ao Ratio MM 0.9 AV Cusp Separation MM 1.7 cm DOPPLER AV Peak Velocity 148.8 cm/s AV Peak Gradient 8.9 mmHg AV Mean Velocity 102.9 cm/s AV Mean Gradient 4.7 mmHg AV Velocity Time Integral 24.7 cm LVOT Peak Velocity 128.0 cm/s LVOT Peak Gradient 6.6 mmHg LVOT Velocity Time Integral 20.7 cm LVOT Stroke Volume 50.5 cm??? LVOT Stroke Volume Index 28.3 ml/m??? LVOT Cardiac Index 2031.0 cm???/min???m??? AV Area Cont Eq vti 2.0 cm??? AV Area Cont Eq pk 2.1 cm??? MV Area PHT 4.1 cm??? Mitral E Point Velocity 94.3 cm/s Mitral A Point Velocity 76.6 cm/s Mitral E to A Ratio 1.2 MV Deceleration Time 187.0 ms MV E' Velocity 4.3 cm/s Mitral E to MV E' Ratio 22.0 TR Peak Velocity 292.7 cm/s TR Peak Gradient 34.3 mmHg Right Ventricular Systolic Press 38.4 mmHg FINDINGS Left Ventricle Moderately increased left ventricular wall thickness. Reduced global left ventricular systolic function. Left ventricular ejection fraction is estimated at 25-30 %.left ventricular cavity size normal. Right Ventricle Right ventricular dilatation. Mild pulmonary hypertension. Right Atrium Right atrium not well visualized. Left Atrium Severely increased left atrial volume. Moderately increased left atrial area. Mitral Valve Structurally normal mitral valve. Mitral valve thickened. Mild mitral annular calcification. Moderate mitral regurgitation. Aortic Valve No aortic valve stenosis or regurgitation.aortic valve sclerosis. Tricuspid Valve Structurally normal tricuspid valve. Mild tricuspid regurgitation. Pulmonic Valve [id number] pulmonic regurgitation. Pericardium No pericardial effusion. Aorta Normal size aortic root and proximal ascending aorta. CONCLUSIONS 1. Severely impaired left ventricle systolic function with global hypokinesis 2. Moderate mitral with mild tricuspid regurgitation Technically difficult study. Definity ECHO contrast used for improved visualization of the endocardial borders (inadequate visualization of two or more contiguous segments). Previewed by: Dr. Ronald Pandey MD (Electronically Signed) Final Date: 29 August 2023 17:51
[2023-08-29] MEDS: LOSARTAN 50 MG TAB PO SCH (20:39)
[2023-08-30] MEDS ORDERED: HEPARIN SODIUM,PORCINE 10,000 UNIT in SODIUM CHLORIDE 0.9% 1,000 ML IRRIGATION PRN (07:00)
[2023-08-30] MEDS ORDERED: HEPARIN SODIUM,PORCINE (1 ML) 2,500 UNIT in SODIUM CHLORIDE 0.9% 250 ML IRRIGATION PRN (07:00)
[2023-08-30] MEDS: POTASSIUM CHLORIDE ER 20 MEQ TAB.ER PO SCH (08:42)
[2023-08-30] MEDS ORDERED: ALPRAZolam 0.25 MG TAB PO PRN (09:18)
[2023-08-30] MEDS ORDERED: NITROGLYCERIN SL TABS 0.4 MG TAB SUBLINGUAL PRN (09:18)
[2023-08-30] MEDS ORDERED: ASPIRIN 81 MG PO ONE (09:30)
[2023-08-30 09:55] LABS: HCT 42.9 % (34.0-46.0); MCH 31.8 pg (25.0-35.0); MCHC 32.6 g/dL (31.0-37.0); MCV 97.6 fL (80.0-100.0); Mean Platelet Volume 11.1; Platelet Count 218 k/uL (150-450); RBC 4.39 m/uL (3.80-5.40); WBC 9.6 k/uL (3.8-10.6)
[2023-08-30 10:11] LABS: African American GFR (CKD) >90 (>60 ml/min/1.73 sqM); Anion Gap 9 mmol/L; Blood Urea Nitrogen 13 mg/dL (7-17); Calcium 9.1 mg/dL (8.4-10.2); Carbon Dioxide 31 mmol/L (22-30); Chloride 105 mmol/L (98-107); Glucose 108 mg/dL (74-99); Magnesium 2.1 mg/dL (1.6-2.3); Non-African American GFR(CKD) 89 (>60 ml/min/1.73 sqM); Potassium 3.4 mmol/L (3.5-5.1); Sodium 145 mmol/L (137-145)
[2023-08-30] MEDS: MAGNESIUM SULFATE-D5W PMX 1 GM in DEXTROSE/WATER 1 100ML.BAG IVPB ONE (10:45)
[2023-08-30 11:44] VITALS: BMI 31.1
--- NOTE | 2023-08-30 11:48 | P.PN ---
Subjective HISTORY OF PRESENT ILLNESS: This is a 78-year-old female with a past medical history significant for GI bleed, osteoarthritis, and nicotine dependence. Patient does not follow with a customer insight analyst. We have been asked to see the patient in consultation for new cardiomyopathy. Patient examined at the bedside in the emergency room. The patient presented to the hospital with a chief complaint of shortness of breath for the past week. She denied any chest pain or pressure. She also reports increased lower extremity edema. Patient son is at the bedside and believes she has a history of hypertension and hyperlipidemia but she has stopped taking all of her medications about 3 years ago. She also has not been following with a PCP for about 3 years. Patient is a current cigarette smoker and smokes about 1 pack/day. She denies any alcohol use. DIAGNOSTICS: - EKG reveals sinus mechanism with PVCs. - Chest xray cardiomegaly, pulmonary vascular congestion and bilateral pleural effusions. - Laboratory data: WBC 10.5. Hemoglobin 14.4. Platelet count 214. Sodium 142. Potassium 3.5. BUN 12. Creatinine 0.51. Lactic acid 1.2. Troponin 0.048. 0.051. 0.056. proBNP 6890. - Current home cardiac medications include none. 08/30/2023 Patient examined this morning the bedside. She is sitting on the side of the bed. Patient denies any chest pain or pressure. She reports improvement in her shortness of breath. She remains on IV Lasix. Echocardiogram completed revealing ejection fraction 25 to 30%, mild pulmonary hypertension, moderate MR, mild TR PHYSICAL EXAM: VITAL SIGNS: Reviewed. GENERAL: Well-developed in no acute distress. HEENT: Head is normocephalic. Pupils are equal, round. Sclerae anicteric. Mucous membranes of the mouth are moist. LUNGS: Respirations even and unlabored. Lungs diminished bilaterally HEART: Regular rate and rhythm. S1 and S2 heard. ABDOMEN: Soft. Nondistended. Nontender. EXTREMITIES: Normal range of motion. No clubbing or cyanosis. Peripheral pulses intact. 1+ lower extremity edema NEUROLOGIC: Awake and alert. Oriented x 3. ASSESSMENT: Shortness of breath Acute heart failure with reduced EF, 25 to 30% Cardiomyopathy, ischemic versus nonischemic Bilateral pleural effusions Elevated troponins, flat, likely type II TN History of GI bleeding Osteoarthritis Nicotine dependence, patient smokes 1 pack/day Hypertension Hyperlipidemia, LDL 174.9 History of medication noncompliance, patient stopped taking medications 3 years ago Hypokalemia Hypomagnesemia PLAN: Continue current cardiac medications Carvedilol increased to 6.25 mg twice a day Supplement potassium and magnesium per protocol Discontinue IV Lasix. Begin oral Lasix 40 mg twice a day Daily weights, accurate intake and output, and monitoring of kidney function Will consider transitioning to Entresto on an outpatient basis N.p.o. at midnight Patient to undergo cardiac catheterization tomorrow with Dr. Lee secondary to new cardiomyopathy. This was discussed with the patient and her son at the bedside. Risks and benefits explained. Patient is agreeable to undergoing procedure tomorrow. Begin precath hydration tomorrow at 6 AM Smoking cessation recommended Further recommendations pending patient course Nurse practitioner note has been reviewed by physician. Signing provider agrees with the documented findings, assessment, and plan of care documented by F[employer]DER AND NOTCHER as a scribe. Objective - Vital Signs Vital signs: Vital Signs Temp 98.1 F 08/30/23 08:00 Pulse 93 08/30/23 08:00 Resp 20 08/30/23 08:00 BP 152/85 08/30/23 08:00 Pulse Ox 95 08/30/23 08:00 FiO2 Intake & Output 08/29/23 08/30/23 08/30/23 18:59 06:59 18:59 Intake Total 0 Balance 0 Weight 77.111 kg Intake: Oral 0 Other: Voiding Method Bedpan Toilet - Labs CBC & Chem 7: 08/30/23 09:20 08/30/23 09:20 Labs: Abnormal Lab Results - Last 24 Hours (Table) 08/29/23 08/29/23 08/30/23 Range/Units 11:44 11:48 09:20 Potassium 3.0 L 3.4 L (3.5-5.1) mmol/L Carbon Dioxide 31 H (22-30) mmol/L Glucose 122 H 108 H (74-99) mg/dL POC Glucose (mg/dL) 112 H (70-110) mg/dL
--- NOTE | 2023-08-30 13:32 | P.PN ---
Subjective Progress Note Date: 08/30/23 Hospital course: Patient is a 78-year-old female with a past medical history of diverticulosis with recurrent GI bleeds resulting in significant anemia and need for blood transfusions, osteoarthritis degenerative arthritis lumbar sacral spine, and nicotine dependence. She presented to the emergency department on 08/28/2023 secondary to shortness of breath. Upon arrival to the emergency department patient underwent full evaluation. Vital signs upon arrival show blood pressure 150/82, heart rate 90, respiratory rate 20, temp 98.1 F, and SpO2 of 93% on room air. EKG completed showing normal sinus rhythm at 80 bpm with occasional PVCs and PACs and T wave inversion inferior leads II, III, and aVF. Chest x-ray completed showing cardiomegaly with pulmonary vascular congestion and bilateral pleural effusions. Labs completed and reviewed. CBC unremarkable. Coagulation profile normal findings. BMP showing mild hyperchloremia with chloride of 109 otherwise normal findings. Lactic acid 1.2. Magnesium 1.9. Liver profile unremarkable. Troponin elevated at 0.048 with proBNP of 6890. Patient started on low intensity heparin infusion and admitted under our services with consultation to cardiology. On the afternoon of 08/29/2023 received notification from RN that patient remains alert and oriented x 4 but was experiencing visual hallucinations stating that she sees a woman's head with hair at the foot of her bed. Stat [id number] glucose was obtained resulting at 112. BMP and magnesium levels were drawn showing hypokalemia and hypomagnesemia and electrolytes were replaced. CT brain was completed negative for acute intracranial process. Neurology was also consulted. TSH normal findings at 1.530. Patient is scheduled to undergo cardiac catheterization on 08/31/2023 Physical exam: Patient seen and fully evaluated at bedside this morning. Patient was sitting up on edge of bed, patient's son and grandson present. Patient is alert and oriented but having episodes of confusion. Her bilateral lower extremity swelling significantly improving she is closer to 1+ pitting edema today. She r eports only "a little" shortness of breath. She denies having any headache, lightheadedness, dizziness, chest pain, palpitations, or any other complaints at this time. Vital signs reviewed and stable. General: Nontoxic, no distress and appears stated age. Derm: Skin warm and dry, normal coloration for ethnicity. Head: Atraumatic, normocephalic and symmetric. Eyes: EOMs intact, no lid lag, and anicteric sclera Mouth: no lip lesions, mucus membranes moist Cardiovascular: regular rate and rhythm with normal S1S2, systolic murmur, positive posterior tibial pulses bilaterally, and cap refill < 2 seconds. Lungs: Respirations even, regular, and unlabored. Lungs slightly diminished with bibasilar crackles. No rhonchi, no rales, no wheezing, and no accessory muscle usage. Abdominal: soft, nontender to palpation, no guarding, no appreciable organomegaly Ext: ROM intact. No gross muscle atrophy, 1-2+ pitting bilateral lower extremity edema, no contractures Neuro: Speech clear, face symmetrical and CN II-XII grossly intact with no noted focal neuro deficits Psych: Alert and oriented to person, place, time, and situation. Appropriate and pleasant affect. Assessment and Plan of Care: Elevated troponins Acute systolic congestive heart failure with EF of 25 to 30% Cardiomyopathy, unclear if ischemic versus nonischemic -Cardiology following, taking patient for cardiac catheterization tomorrow lynn spencer. -Echocardiogram completed showing severely impaired EF of 25 to 30% with global hypokinesis, moderate mitral and mild tricuspid regurgitation -Continuous telemetry monitoring -Troponins trended resulting at 0.048, 0.051, and 0.056 -ProBNP was 6890 -Continue Daily weights and close monitoring of I's and O's -Cardiac diet -Continue Lasix 40 mg twice daily. -Continue aspirin 81 mg daily, atorvastatin 40 mg daily, carvedilol 6.25 mg twice daily, and losartan 50 mg nightly. -Continued close monitoring of electrolytes while diuresing. Acute alteration in mental status with visual hallucinations, unclear etiology possibly secondary to hospital associated delirium Electrolyte abnormalities with hypokalemia and hypomagnesemia -CT brain negative for acute intracranial process showing nonspecific white matter changes likely secondary to chronic small vessel ischemic disease -Continue neurochecks every 4 hours and fall precautions -Neurology following -Electrolytes replaced, will continue to follow closely with repeat BMP and magnesium levels to monitor for resolution and place additional orders as indicated based upon future lab results. -TSH normal findings at 1.530 Data and imaging reviewed: -Labs completed and reviewed. TSH normal findings at 1.530. CBC unremarkable. BMP showing potassium 3.4 and orders were placed for replacement. -CT brain was completed and radiology report reviewed stating negative for acute intracranial process showing nonspecific white matter changes likely secondary to chronic small vessel ischemic disease -Vital signs reviewed. . -Echocardiogram completed [place] report reviewed showing severely impaired EF of 25 to 30% with global hypokinesis, moderate mitral and mild tricuspid regurgitation -Vital signs reviewed and stable. Blood pressure 152/85, heart rate 93, respiratory rate 20, temp 98.1 F, SpO2 95% on 4 L. CODE STATUS: Full code DVT prophylaxis: Heparin infusion Anticipated discharge date: Clinical course to determine Anticipated discharge place: Clinical course to determine Patient was seen independently by Nurse Pracitioner. This document was prepared using [employer] dictation software. Please allow for errors in pesticide use medical coordinator, while rare they do occur. Virgilio Lamas NP rendered care for this patient independently, reviewed the findings and plan as documented in the note above. I did not physically speak with or examine the patient on this date. Objective - Vital Signs Vital signs: Vital Signs Temp 97.5 F L 08/30/23 04:00 Pulse 74 08/30/23 04:00 Resp 18 08/30/23 04:00 BP 142/80 08/30/23 04:00 Pulse Ox 96 08/30/23 04:00 FiO2 Intake & Output 08/29/23 08/30/23 08/30/23 18:59 06:59 18:59 Other: Voiding Method Bedpan - Labs CBC & Chem 7: 09/01/23 07:38 09/01/23 07:38 Labs: Abnormal Lab Results - Last 24 Hours (Table) 08/29/23 08/29/23 08/29/23 Range/Units 02:56 10:54 11:44 Potassium 3.0 L (3.5-5.1) mmol/L Glucose 113 H (74-99) mg/dL POC Glucose (mg/dL) 112 H (70-110) mg/dL Cholesterol 243.00 H (0.00-200.00) mg/dL LDL Cholesterol, Calc 174.9 H (0.0-131.0) mg/dL 08/29/23 Range/Units 11:48 Potassium 3.0 L (3.5-5.1) mmol/L Glucose 122 H (74-99) mg/dL POC Glucose (mg/dL) (70-110) mg/dL Cholesterol (0.00-200.00) mg/dL LDL Cholesterol, Calc (0.0-131.0) mg/dL
--- NOTE | 2023-08-30 17:14 | P.CNNES ---
History of Present Illness Consult date: 08/30/23 Requesting physician: Virgilio Lamas Reason for Consult: Confusion, hallucinations History of Present Illness: Patient is a 78-year-old right-handed female came to the hospital 2 days ago, 08/28/2023 at 6:44 PM for 5-day history of shortness of breath. Patient's son was also present, who also provided with a history. Patient's symptoms of shortness of breath started last Monday, on 08/23/2023. The symptoms progressively got worse. Since arrival to the hospital, patient was doing well, but yesterday patient has an acute episode of altered mental status, in which patient was having delusions, and hallucinations. She started seeing little girls standing outside the curtain in the ER. She saw a girl with rollers yesterday, laying in the cart. Patient states that they are playing tricks with her. Patient's son also mentioned that patient has not been sleeping well because of breathing difficulty and has not slept for the last 5 days. She has been sleep deprived. No slurred speech, facial droop, focal weakness, numbness or tingling or any strokelike symptoms. The symptoms lasted for about 2 hours and then have mostly resolved. Vital signs on arrival blood pressure 150/82, pulse rate 90, temperature 98.1 and saturation 93%. Blood test shows normal CBC, PT PTT, normal CMP EKG shows sinus rhythm with occasional ventricular premature complexes. Chest x-ray revealed cardiomegaly, pulmonary vascular congestion and bilateral pleural effusion. Correlate with BNP for congestive heart failure. Patient had a CT head performed 08/29/2023, which revealed no acute intracranial process. Nonspecific white matter changes, likely secondary to chronic small vessel ischemic disease. I personally reviewed CT head, agree with the findings. 2D echo revealed severely impaired left ventricular systolic function with global hypokinesis. EF is 25 to 30%. Patient states she has history of a GI bleed about 5 years ago. Patient also had a fall on 07/12/2022, when while sitting in the toilet, she fell forwards, hitting head on the bathtub. There was no loss of consciousness. Patient required suturing and was released. Patient never has any history of delusions, delirium or hallucinations. Patient has smoked for 60 years. She has smoked half pack per day for 40 years, and then smoked 1 pack/day for last 20 years. Denies any alcohol use. Patient does not use any assistive device. Her memory functions are normal otherwise. Patient is healthy, does not take any medications. However as per cardiology note, it was reported that patient has history of hypertension and hyperlipidemia and she has stopped taking all her medications about 3 years ago. Patient has not been following up with the PCP for about 3 years. Review of Systems Constitutional: Denies chills, Denies fever Eyes: denies blurred vision, denies diplopia, denies pain Ears: deny: decreased hearing, ear discharge Ears, nose, mouth and throat: Reports headache (This am in right eye), Denies sore throat Cardiovascular: Reports shortness of breath, Denies chest pain Respiratory: Reports excessive sputum, Denies cough, Denies wheezing Gastrointestinal: Denies abdominal pain, Denies diarrhea, Denies nausea, Denies vomiting Genitourinary: Reports mixed incontinence (long time), Denies dysuria, Denies hematuria, Denies urinary frequency Musculoskeletal: Reports low back pain, Denies myalgias, Denies neck pain Integumentary: Denies pruritus, Denies rash Neurological: Reports as per HPI Psychiatric: Reports anxiety, Reports hallucinations, Denies depression Hematologic/Lymphatic: Reports easy bleeding, Reports easy bruising Past Medical History Past Medical History: GI Bleed, Osteoarthritis (OA) Additional Past Medical History / Comment(s): HX lower GI BLEED 2010, AND ALSO 10/28/15 W/ ANEMIA and blood transfusion, 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 History of Any Multi-Drug Resistant Organisms: None Reported Past Surgical History: Appendectomy, Back Surgery, Joint Replacement, Orthopedic Surgery, Tonsillectomy Additional Past Surgical History / Comment(s): R knee arthroscopy, right knee replacement, BACK SURG X2, COLONOSCOPIES with last one done 12/11/15. EXC Benign LT Facial Tumor, D&C, R popliteal subcutaneous mass removed twice and another has formed. Past Anesthesia/Blood Transfusion Reactions: No Reported Reaction Additional Past Anesthesia/Blood Transfusion Reaction / Comment(s): Pt has received blood without reaction. Past Psychological History: No Psychological Hx Reported Additional Psychological History / Comment(s): Pt resides with her spouse. She is independent. Smoking Status: Current every day smoker Past Alcohol Use History: None Reported Additional Past Alcohol Use History / Comment(s): SMOKED 45 YEARS, 1PPD. Past Drug Use History: None Reported - Past Family History Father Family Medical History: Cancer Additional Family Medical History / Comment(s): BRAIN, LUNG, LIVER, AND SPLEEN CANCER. Mother Family Medical History: Hypertension Medications and Allergies Home Medications Medication Instructions Recorded Confirmed Type No Known Home Medications 08/28/23 08/28/23 History Allergies Allergy/AdvReac Type Severity Reaction Status Date / Time No Known Allergies Allergy Verified 08/28/23 21:20 Physical Examination - Vital Signs Vital Signs: Vital Signs Temp Pulse Pulse Resp BP BP Pulse Ox 08/30/23 08:00 98.1 F 93 20 152/85 95 08/30/23 04:00 97.5 F L 74 18 142/80 96 08/29/23 23:52 82 20 133/67 97 08/29/23 20:00 97.8 F 88 18 126/91 96 08/29/23 15:40 83 17 134/89 97 08/29/23 13:10 97.8 F 66 19 132/58 98 08/29/23 12:52 97.9 F 80 17 129/76 95 Intake and Output 08/29/23 08/30/23 08/30/23 22:59 06:59 14:59 Intake Total 0 Balance 0 Intake: Oral 0 Other: Voiding Method Toilet Weight 77.111 kg Patient is an elderly female, very pleasant, in no acute distress. Patient appears slightly delirious. Patient has slightly pressured speech, appears somewhat hyperalert. Patient is alert awake oriented to time place and person. She knows it is Aug and the year is 2023 and that she is in [facility] in [facility] and name of the current president Mr. Carr. Speech and language functions are normal. Patient can name and repeat very well. No aphasia or dysarthria. Attention, concentration and fund of knowledge is adequate. On cranial nerve examination, pupils are equal, round and reacting to light, visual gasca are full on confrontation, with no neglect on double simultaneous stimulation. Extraocular muscles are intact with no nystagmus. Face is symmetric, tongue protrudes to the midline. Palatal elevation and sensation normal, hearing and shoulder shrug normal, facial sensation normal. On muscle strength testing, there is no pronator drift and the strength is normal in arms and legs distally and proximally except hip flexion, which is 5- on the right, 5 left. Deep tendon reflexes are symmetric absent in the arms and legs and plantars are possible upgoing bilaterally. Sensory to touch is equal with no neglect on double simultaneous stimulation. Cerebellar function showed no ataxia for [id number] testing. No dysdiadochokinesia. No ataxia for [id number] testing on either side. Tone a nd bulk of muscles normal. Gait deferred.. On general examination, there is no carotid bruit or murmur, S1-S2 audible. Chest is clear on consultation. Abdomen is soft nontender. No organomegaly, bowel sounds present. Patient has 2+ peripheral edema. Results - Laboratory Findings CBC and BMP: 08/30/23 09:20 08/30/23 09:20 Abnormal Lab Findings: Abnormal Labs 08/28/23 08/28/23 08/29/23 19:20 19:20 00:44 APTT Potassium Chloride 109 H Carbon Dioxide Creatinine 0.51 L Glucose POC Glucose (mg/dL) Troponin I 0.048 H* 0.051 H* Cholesterol LDL Cholesterol, Calc 08/29/23 08/29/23 08/29/23 02:56 02:56 02:56 APTT 72.3 H Potassium Chloride Carbon Dioxide Creatinine Glucose POC Glucose (mg/dL) Troponin I 0.056 H* Cholesterol 243.00 H LDL Cholesterol, Calc 174.9 H 08/29/23 08/29/23 08/29/23 10:54 11:44 11:48 APTT Potassium 3.0 L 3.0 L Chloride Carbon Dioxide Creatinine Glucose 113 H 122 H POC Glucose (mg/dL) 112 H Troponin I Cholesterol LDL Cholesterol, Calc 08/30/23 09:20 APTT Potassium 3.4 L Chloride Carbon Dioxide 31 H Creatinine Glucose 108 H POC Glucose (mg/dL) Troponin I Cholesterol LDL Cholesterol, Calc Assessment and Plan Assessment: * Acute delirium, manifesting with delusions and hallucinations, probably multifactorial. Possible causes include sleep deprivation, hypoxemia, acute CHF, possible pulmonary edema and other metabolic causes. * Acute CHF * Elevated cardiac enzymes * Hypertension * Hyperlipidemia * Medication noncompliance * Tobacco use Plan: Patient probably had delirium manifesting with hallucinations, delusions. Although she is not having hallucinations, but it appears she is still slightly delirious. Treatment of the various causes of delirium, as mentioned above, as per IM, and cardiology. Patient's examination is nonfocal. 2-D echo revealed severely impaired left ventricular systolic function with global hypokinesis with EF 25 to 30%. Severely increased left atrial volume. Moderate MR. Fasting a.m. lipid panel cholesterol 243, LDL 174, HDL 47 and triglycerides 104. We will check B12, folate and MMA. TSH is normal. Continue aspirin and Lipitor. Telemetry monitoring rule out any arrhythmia PT, OT, speech therapy DVT prophylaxis: Heparin 5000 units subcu every 8 hours Recommend complete tobacco cessation. Neurology will continue to follow. Thank you for the consult.
[2023-08-30] MEDS: FUROSEMIDE 40 MG TAB PO SCH (17:22)
[2023-08-30] MEDS: carvediloL 6.25 MG TAB PO SCH (17:22)
[2023-08-30] MEDS: MELATONIN 3 MG TABLET PO PRN (20:19)
[2023-08-31] MEDS: ASPIRIN 325 MG TAB PO ONE (05:59)
[2023-08-31] MEDS: ATORVASTATIN 80 MG TAB PO ONE (05:59)
[2023-08-31] MEDS: SODIUM CHLORIDE 0.9% 1,000 ML IV SCH ×2 (05:59→13:15)
[2023-08-31] MEDS ORDERED: HEPARIN SODIUM,PORCINE (1 ML) 2,500 UNIT in SODIUM CHLORIDE 0.9% 250 ML IRRIGATION PRN (06:00)
[2023-08-31] MEDS ORDERED: HEPARIN SODIUM,PORCINE 10,000 UNIT in SODIUM CHLORIDE 0.9% 1,000 ML IRRIGATION PRN (06:00)
[2023-08-31] MEDS ORDERED: VERAPAMIL 2.5 MG/ML 2 ML AMP ONE (08:34)
[2023-08-31] MEDS ORDERED: LIDOCAINE 1% INJ 10MG/ML (20 ML MDV) ONE ×2 (08:35→10:37)
[2023-08-31] MEDS: IV FLUID CONTINUATION 1,000 ML IV ONE (09:00)
[2023-08-31] MEDS: MIDAZOLAM 2 MG/2 ML VIAL IVP ONE (09:10)
[2023-08-31] MEDS: LIDOCAINE 1% INJ 10MG/ML (20 ML MDV) SQ ONE (09:11)
[2023-08-31] MEDS ORDERED: HEPARIN SODIUM 1,000 UN/ML (10ML VL) ONE (09:12)
[2023-08-31] MEDS: VERAPAMIL SYRINGE (5 MG/10 ML) INTRAARTER ONE (09:15)
[2023-08-31] MEDS ORDERED: fentaNYL (PF) 50 MCG/ML 2 ML AMP ONE (09:19)
[2023-08-31] MEDS: HEPARIN SODIUM 1,000 UN/ML (10ML VL) IV ONE (09:20)
[2023-08-31] MEDS: fentaNYL (PF) 50 MCG/1 ML VIAL IVP ONE (09:27)
[2023-08-31 09:44] LABS: African American GFR (CKD) >90 (>60 ml/min/1.73 sqM); Anion Gap 9 mmol/L; Blood Urea Nitrogen 14 mg/dL (7-17); Calcium 9.2 mg/dL (8.4-10.2); Carbon Dioxide 32 mmol/L (22-30); Chloride 103 mmol/L (98-107); Glucose 117 mg/dL (74-99); Non-African American GFR(CKD) >90 (>60 ml/min/1.73 sqM); Potassium 3.6 mmol/L (3.5-5.1); Sodium 144 mmol/L (137-145)
[2023-08-31] MEDS: HYDROmorphone 0.5 MG/0.5 ML SYRINGE IVP ONE ×3 (09:57→12:17)
[2023-08-31] MEDS: IOPAMIDOL-370 100ML BTL INJ ONE ×2 (10:00→10:45)
[2023-08-31] MEDS: NITROGLYCERIN 1000MCG/10ML SYRINGE INTRACORON ONE (10:16)
[2023-08-31] MEDS ORDERED: CLOPIDOGREL 75 MG TAB ONE (10:30)
[2023-08-31] MEDS: CLOPIDOGREL 75 MG TAB PO ONE (10:33)
[2023-08-31] MEDS ORDERED: RX INFO: IV CONTRAST WAS GIVEN 1 EACH MISC MISCELLANE PRN (10:48)
[2023-08-31] MEDS ORDERED: ATROPINE SULFATE 0.1 MG/ML 10ML SYRINGE IV PRN (10:48)
--- NOTE | 2023-08-31 12:40 | CC ---
CARDIAC CATHETERIZATION REPORT PROCEDURES: 1. Coronary angiography. 2. PTCA and stenting of proximal RCA with a drug-eluting stent. 3. Shockwave lithotripsy of heavily calcified right coronary artery. 4. Intravascular ultrasound of right coronary artery. PERFORMED BY: Dr. Blanca Lee. ANESTHESIA: Moderate conscious sedation, time was 80 minutes. CLINICAL INFORMATION: Ms. Adelita Peter is a 78-year-old lady with a history of degenerative joint disease, previous back surgery, also knee arthroplasty. She has probably history of both hypertension and hyperlipidemia, but she has not been taking medicines for 3 years and she came into the hospital, short of breath, was found to be in significant heart failure that was addressed and treated. Ejection fraction is about 25% to 30%, the global decrease in contractility and left ventricle is mildly enlarged or at upper limits of normal. In view of her presentation and also significant risk factors that include smoking, hypertension, hyperlipidemia, she was advised cardiac catheterization after due discussion regarding risks, benefits, and options. I discussed with the patient as well as her 2 sons and grandson. PROCEDURE NOTE: Under local anesthesia and strict aseptic precautions, a 6-Cuban introducer was placed in the right radial artery. I tried to advance a right Jeanette 5-Cuban catheter, but there was extreme tortuosity and bovine arch, therefore I switched over to the right femoral approach. The femoral arteries appeared to be heavily calcified. With a micropuncture needle technique, I gained access and advanced a 6-Cuban introducer. There was extreme tortuosity in the iliac system, but I was able to negotiate this with a right Jeanette catheter and I performed selective coronary angiography of the RCA. I then tried to advance a left Jeanette catheter of about 4.0 caliber of 6-Cuban, I had difficulty. Eventually, I went over with a 5-Cuban JL4 and I did selective coronary angiography. LV pressures were not checked. I noted that she had a tight lesion in the proximal RCA, heavily calcified. I recommend intervention that was performed in the same setting. LV pressures were not obtained. Following the PCI of RCA procedure, I requested Dr. Kenny to evaluate her iliac area where there was extreme tortuosity and I had difficulty advancing a 6-Cuban guide catheter and I required an Amplatz wire. He came and did a limited angiogram, which revealed that there was no dissection. The flow was excellent. There was extreme tortuosity and heavy calcification making it difficult for me to advance the catheter. There were no issues in terms of dissection or extravasation. The sheath was therefore sutured in the groin and the radial sheath was taken out and TR band applied as per protocol. She was sent to the room in a stable condition. Findings were discussed with the patient as well as her son and sister. I expect the sheath will be pulled in about 2 hours and we will do a manual pull. She will be on bedrest for 6 hours. CARDIAC CATHETERIZATION FINDINGS: Right coronary artery dominant vessel has a proximal calcified lesion of about 90% at a bend and then the caliber improves distally, it bifurcates into PDA and PLV, both of which supply a fair amount of myocardium. Dominant RCA 90% proximal lesion, heavily calcified. Left main coronary artery: Short patent vessel, heavily calcified. No significant disease bifurcates into LAD and circumflex. Left anterior descending coronary artery: Good caliber vessel extends along the anterior wall given runs all the way to the apex and curves over the apex. It gives off septal and diagonal branches. There are multiple areas of narrowing of about 30% to 40% throughout with calcification, but no critical stenosis. Left posterior circumflex coronary artery is a large caliber, nondominant vessel very tortuous, gives off a large obtuse marginal and distal posterolateral branch. The distal posterolateral branch has mild diffuse disease, but the circumflex marginal is free of significant disease. Moderate to heavy calcification, no significant disease. No more than 30% to 40% narrowing. Left ventriculogram was not performed. PCI PROCEDURE DETAILS: I used a standard right 6-Cuban Jeanette guide catheter. I was able to cannulate the right coronary artery well with good guide support. A run- through wire was advanced and positioned in the distal branches of RCA. Predilatation was performed with a 3.0 caliber 12 mm NC Trek balloon at 12 atmospheres. I then advanced a shockwave lithotripsy balloon of 3.0 caliber 12 mm length and I did 4 lithotripsy passes with shockwave application. Significant improvement was noted. I then deployed a 15 mm long 3.5 caliber Xience stent at 13 atmospheres. The patient had mild chest discomfort. No significant EKG changes other than precordial T-wave inversion. Excellent angiographic result was achieved. I then performed intravascular ultrasound, which suggested full expansion of the stent and good apposition. There were no complications and proximal to the stented area. There was no significant lesion. Excellent angiographic result without complication was achieved. The patient was given 600 mg of Plavix. She will be on aspirin and Plavix without interruption for 1 year. She received a total of 6000 units of heparin. ACT was 262. Excellent angiographic result without complication was achieved. Details were discussed with the patient and family. MMODL / IJN: [id number] /
[2023-08-31] MEDS: HYDROmorphone 0.5 MG/0.5 ML SYRINGE IVP STA (14:28)
--- NOTE | 2023-08-31 14:38 | P.PN ---
Subjective Progress Note Date: 08/31/23 Hospital course: Patient is a 78-year-old female with a past medical history of diverticulosis with recurrent GI bleeds resulting in significant anemia and need for blood transfusions, osteoarthritis degenerative arthritis lumbar sacral spine, and nicotine dependence. She presented to the emergency department on 08/28/2023 secondary to shortness of breath. Upon arrival to the emergency department patient underwent full evaluation. Vital signs upon arrival show blood pressure 150/82, heart rate 90, respiratory rate 20, temp 98.1 F, and SpO2 of 93% on room air. EKG completed showing normal sinus rhythm at 80 bpm with occasional PVCs and PACs and T wave inversion inferior leads II, III, and aVF. Chest x-ray completed showing cardiomegaly with pulmonary vascular congestion and bilateral pleural effusions. Labs completed and reviewed. CBC unremarkable. Coagulation profile normal findings. BMP showing mild hyperchloremia with chloride of 109 otherwise normal findings. Lactic acid 1.2. Magnesium 1.9. Liver profile unremarkable. Troponin elevated at 0.048 with proBNP of 6890. Patient started on low intensity heparin infusion and admitted under our services with consultation to cardiology. On the afternoon of 08/29/2023 received notification from RN that patient remains alert and oriented x 4 but was experiencing visual hallucinations stating that she sees a woman's head with hair at the foot of her bed. Stat [id number] glucose was obtained resulting at 112. BMP and magnesium levels were drawn showing hypokalemia and hypomagnesemia and electrolytes were replaced. CT brain was completed negative for acute intracranial process. Neurology was also consulted. TSH normal findings at 1.530. Patient underwent cardiac catheterization this morning resulting in successful stenting of distal RCA. Physical exam: Patient seen and fully evaluated at bedside this afternoon upon return from cardiac catheterization. TR band remains to right wrist with no signs of hematoma or bleeding. Sheath was pulled from right groin and currently no hematomas, bleeding, or drainage. Patient remains slightly drowsy from procedure but currently denies having any complaints at this time. Vital signs reviewed and stable. General: Nontoxic, no distress and appears stated age. Derm: Skin warm and dry, normal coloration for ethnicity. Head: Atraumatic, normocephalic and symmetric. Eyes: EOMs intact, no lid lag, and anicteric sclera Mouth: no lip lesions, mucus membranes moist Cardiovascular: regular rate and rhythm with normal S1S2, systolic murmur, positive posterior tibial pulses bilaterally, and cap refill < 2 seconds. Lungs: Respirations even, regular, and unlabored. Lungs slightly diminished with bibasilar crackles. No rhonchi, no rales, no wheezing, and no accessory muscle usage. Abdominal: soft, nontender to palpation, no guarding, no appreciable organomegaly Ext:. No gross muscle atrophy, 1+ pitting bilateral lower extremity edema, no contractures movement and sensation intact. TR band Right wrist Neuro: Speech clear, face symmetrical and CN II-XII grossly intact with no noted focal neuro deficits Psych: Alert and oriented to person, place, time, and situation. Appropriate and pleasant affect. Assessment and Plan of Care: Elevated troponins, likely type II NSTEMI secondary to CHF Acute systolic congestive heart failure with EF of 25 to 30% Cardiomyopathy, unclear if ischemic versus nonischemic -Cardiology following, took patient for cardiac catheterization this morning r esulting in successful stenting of distal RCA. -Echocardiogram completed showing severely impaired EF of 25 to 30% with global hypokinesis, moderate mitral and mild tricuspid regurgitation -Continuous telemetry monitoring -Continue Daily weights and close monitoring of I's and O's -Cardiac diet -Continue Lasix 40 mg twice daily, Plavix 75 mg daily, aspirin 81 mg daily, atorvastatin 40 mg daily, carvedilol 6.25 mg twice daily, and losartan 50 mg nightly. -Continued close monitoring of electrolytes while diuresing. Acute alteration in mental status with visual hallucinations, unclear etiology possibly secondary to hospital associated delirium vs sleep deprivation Electrolyte abnormalities with hypokalemia and hypomagnesemia, resolved -CT brain negative for acute intracranial process showing nonspecific white matter changes likely secondary to chronic small vessel ischemic disease -Continue neurochecks every 4 hours and fall precautions -Neurology following -Electrolytes replaced, will continue to follow closely with repeat BMP and magnesium levels to monitor for resolution and place additional orders as indicated based upon future lab results. -TSH normal findings at 1.530 Data and imaging reviewed: -Labs completed and reviewed showing resolution of hypokalemia with potassium of 3.6. -Vital signs reviewed. Blood pressure 121/59, heart rate 64, respiratory rate 20, temp 98.1 F, and SpO2 of 94% on 4 L O2. CODE STATUS: Full code DVT prophylaxis: Heparin Anticipated discharge date: Clinical course to determine Anticipated discharge place: Clinical course to determine Patient was seen independently by Nurse Pracitioner. This document was prepared using [employer] dictation software. Please allow for errors in veterinary inspector, while rare they do occur. Virgilio Lamas NP rendered care for this patient independently, reviewed the findings and plan as documented in the note above. I did not physically speak with or examine the patient on this date. Objective - Vital Signs Vital signs: Vital Signs Temp 97.5 F L 08/31/23 00:00 Pulse 70 08/31/23 04:00 Resp 22 08/31/23 04:00 BP 120/74 08/31/23 04:00 Pulse Ox 93 L 08/31/23 04:00 FiO2 Intake & Output 08/30/23 08/31/23 08/31/23 18:59 06:59 18:59 Intake Total 350 Output Total 50 Balance 300 Weight 77.111 kg Intake: Oral 350 Output: Urine 50 Other: Voiding Method Toilet Toilet Incontinent # Voids 1 - Labs CBC & Chem 7: 09/01/23 07:38 09/01/23 07:38 Labs: Abnormal Lab Results - Last 24 Hours (Table) 08/30/23 Range/Units 09:20 Potassium 3.4 L (3.5-5.1) mmol/L Carbon Dioxide 31 H (22-30) mmol/L Glucose 108 H (74-99) mg/dL
[2023-09-01] MEDS: HYDROmorphone 0.5 MG/0.5 ML SYRINGE IVP PRN (02:59)
[2023-09-01 08:31] LABS: Basophils # (A) 0.1 k/uL (0-0.2); Basophils % (A) 1 %; Eosinophils # (A) 0.1 k/uL (0-0.7); Eosinophils % (A) 1 %; HCT 39.8 % (34.0-46.0); HGB 12.6 gm/dL (11.4-16.0); Hypochromasia Slight; Lymphocytes # (A) 2.7 k/uL (1.0-4.8); Lymphocytes % (A) 27 %; MCH 31.6 pg (25.0-35.0); MCHC 31.7 g/dL (31.0-37.0); MCV 99.7 fL (80.0-100.0); Mean Platelet Volume 10.4; Monocytes # (A) 0.6 k/uL (0-1.0); Monocytes % (A) 6 %; Neutrophils # (A) 6.5 k/uL (1.3-7.7); Neutrophils % (A) 65 %; Platelet Count 196 k/uL (150-450); RBC 3.99 m/uL (3.80-5.40); RDW 12.5 % (11.5-15.5)
[2023-09-01 08:55] LABS: African American GFR (CKD) >90 (>60 ml/min/1.73 sqM); Anion Gap 8 mmol/L; Blood Urea Nitrogen 14 mg/dL (7-17); Calcium 8.9 mg/dL (8.4-10.2); Carbon Dioxide 30 mmol/L (22-30); Chloride 105 mmol/L (98-107); Glucose 110 mg/dL (74-99); Non-African American GFR(CKD) >90 (>60 ml/min/1.73 sqM); Potassium 3.5 mmol/L (3.5-5.1); Sodium 143 mmol/L (137-145)
--- NOTE | 2023-09-01 09:49 | P.PN ---
Subjective Progress Note Date: 08/31/23 Patient was seen for follow-up. Patient's grandson was present. Patient is laying in the bed, still appears slightly delirious/encephalopathic. However patient has not had any hallucinations noticed by herself, or grandson. Offers no complaints. Objective - Vital Signs Vital signs: Vital Signs Temp 97.7 F 08/31/23 15:30 Pulse 66 08/31/23 15:30 Resp 20 08/31/23 15:30 BP 123/68 08/31/23 15:30 Pulse Ox 94 L 08/31/23 15:30 FiO2 Intake & Output 08/30/23 08/31/23 08/31/23 18:59 06:59 18:59 Intake Total 350 Output Total 50 Balance 300 Weight 77.111 kg Intake: Oral 350 Output: Urine 50 Other: Voiding Method Toilet Toilet Toilet Incontinent Incontinent # Voids 1 150 - Exam Unchanged. Examination nonfocal. - Labs CBC & Chem 7: 09/01/23 07:38 09/01/23 07:38 Labs: Abnormal Lab Results - Last 24 Hours (Table) 08/31/23 Range/Units 08:13 Carbon Dioxide 32 H (22-30) mmol/L Glucose 117 H (74-99) mg/dL Assessment and Plan Assessment: * Acute delirium, manifesting with delusions and hallucinations, probably multifactorial. Possible causes include sleep deprivation, hypoxemia, acute CHF, possible pulmonary edema and other metabolic causes. * Acute CHF * Elevated cardiac enzymes * Hypertension * Hyperlipidemia * Medication noncompliance * Tobacco use Plan: Patient probably had delirium manifesting with hallucinations, delusions. Alt neno she is not having hallucinations, but it appears she is still slightly delirious. Treatment of the various causes of delirium, as mentioned above, as per IM, and cardiology. Patient's examination is nonfocal. 2-D echo revealed severely impaired left ventricular systolic function with global hypokinesis with EF 25 to 30%. Severely increased left atrial volume. Moderate MR. Fasting a.m. lipid panel cholesterol 243, LDL 174, HDL 47 and triglycerides 104. B12 499, folate 11.30, TSH 1.53. All normal. Await MMA. Continue aspirin and Lipitor. Telemetry monitoring rule out any arrhythmia PT, OT, speech therapy DVT prophylaxis: Heparin 5000 units subcu every 8 hours Recommend complete tobacco cessation. Neurologically, no other workup indicated.
[2023-09-01] MEDS: ASPIRIN 81 MG PO SCH (10:12)
[2023-09-01] MEDS: CLOPIDOGREL 75 MG TAB PO SCH (10:12)
[2023-09-01] MEDS: FUROSEMIDE 20 MG TAB PO SCH (10:12)
--- NOTE | 2023-09-01 12:27 | P.PN ---
Subjective HISTORY OF PRESENT ILLNESS: This is a 78-year-old female with a past medical history significant for GI bleed, osteoarthritis, and nicotine dependence. Patient does not follow with a senior product designer. We have been asked to see the patient in consultation for new cardiomyopathy. Patient examined at the bedside in the emergency room. The patient presented to the hospital with a chief complaint of shortness of breath for the past week. She denied any chest pain or pressure. She also reports increased lower extremity edema. Patient son is at the bedside and believes she has a history of hypertension and hyperlipidemia but she has stopped taking all of her medications about 3 years ago. She also has not been following with a PCP for about 3 years. Patient is a current cigarette smoker and smokes about 1 pack/day. She denies any alcohol use. DIAGNOSTICS: - EKG reveals sinus mechanism with PVCs. - Chest xray cardiomegaly, pulmonary vascular congestion and bilateral pleural effusions. - Laboratory data: WBC 10.5. Hemoglobin 14.4. Platelet count 214. Sodium 142. Potassium 3.5. BUN 12. Creatinine 0.51. Lactic acid 1.2. Troponin 0.048. 0.051. 0.056. proBNP 6890. - Current home cardiac medications include none. 08/30/2023 Patient examined this morning the bedside. She is sitting on the side of the bed. Patient denies any chest pain or pressure. She reports improvement in her shortness of breath. She remains on IV Lasix. Echocardiogram completed revealing ejection fraction 25 to 30%, mild pulmonary hypertension, moderate MR, mild TR 09/01/2023 Patient is status postcardiac catheterization with PTCA and stenting of the proximal RCA and shockwave lithotripsy of heavily calcified right coronary artery. Patient examined this morning at the bedside. Patient denies chest pain or pressure. She denies shortness of breath. Vital signs are stable. Right femoral cath site with pulse present. No hematoma noted. PHYSICAL EXAM: VITAL SIGNS: Reviewed. GENERAL: Well-developed in no acute distress. HEENT: Head is normocephalic. Pupils are equal, round. Sclerae anicteric. Mucous membranes of the mouth are moist. LUNGS: Respirations even and unlabored. Lungs diminished bilaterally HEART: Regular rate and rhythm. S1 and S2 heard. ABDOMEN: Soft. Nondistended. Nontender. EXTREMITIES: Normal range of motion. No clubbing or cyanosis. Peripheral pulses intact. 1+ lower extremity edema NEUROLOGIC: Awake and alert. Oriented x 3. ASSESSMENT: Shortness of breath Acute heart failure with reduced EF, 25 to 30% New onset cardiomyopathy, ischemic, status post cardiac catheterization with stenting of the proximal RCA Bilateral pleural effusions Elevated troponins, flat, likely type II [place] History of GI bleeding Osteoarthritis Nicotine dependence, patient smokes 1 pack/day Hypertension Hyperlipidemia, LDL 174.9 History of medication noncompliance, patient stopped taking medications 3 years ago Hypokalemia Hypomagnesemia PLAN: Continue dual antiplatelet therapy with aspirin and Plavix Continue high intensity statin Continue additional cardiac medications Will consider transitioning to Entresto on an outpatient basis Wean oxygen as tolerated Consults PT and OT for evaluation as patient reports generalized weakness and inability to ambulate alone Continue to monitor patient for additional 24 hours Anticipate discharge home tomorrow if patient remains stable She is to follow-up postdischarge with Dr. Lee Smoking cessation recommended Nurse practitioner note has been reviewed by physician. Signing provider agrees with the documented findings, assessment, and plan of care documented by EXTRACTOR OPERATOR SOLVENT PROCESS as a scribe. Objective - Vital Signs Vital signs: Vital Signs Temp 98.1 F 09/01/23 10:10 Pulse 61 09/01/23 10:10 Resp 18 09/01/23 10:10 BP 116/74 09/01/23 10:10 Pulse Ox 98 09/01/23 10:10 FiO2 Intake & Output 08/31/23 09/01/23 09/01/23 18:59 06:59 18:59 Intake Total 540 240 Output Total 525 Balance 15 240 Intake: Oral 540 240 Output: Urine 525 Other: Voiding Method Toilet Toilet Toilet Incontinent Incontinent Incontinent # Voids 150 2 # Bowel Movements 0 - Labs CBC & Chem 7: 09/01/23 07:38 09/01/23 07:38 Labs: Abnormal Lab Results - Last 24 Hours (Table) 09/01/23 Range/Units 07:38 Creatinine 0.47 L (0.52-1.04) mg/dL Glucose 110 H (74-99) mg/dL
--- NOTE | 2023-09-01 12:55 | P.PN ---
Subjective Progress Note Date: 09/01/23 Hospital course: Patient is a 78-year-old female with a past medical history of diverticulosis with recurrent GI bleeds resulting in significant anemia and need for blood transfusions, osteoarthritis degenerative arthritis lumbar sacral spine, and nicotine dependence. She presented to the emergency department on 08/28/2023 secondary to shortness of breath. Upon arrival to the emergency department patient underwent full evaluation. Vital signs upon arrival show blood pressure 150/82, heart rate 90, respiratory rate 20, temp 98.1 F, and SpO2 of 93% on room air. EKG completed showing normal sinus rhythm at 80 bpm with occasional PVCs and PACs and T wave inversion inferior leads II, III, and aVF. Chest x-ray completed showing cardiomegaly with pulmonary vascular congestion and bilateral pleural effusions. Labs completed and reviewed. CBC unremarkable. Coagulation profile normal findings. BMP showing mild hyperchloremia with chloride of 109 otherwise normal findings. Lactic acid 1.2. Magnesium 1.9. Liver profile unremarkable. Troponin elevated at 0.048 with proBNP of 6890. Patient started on low intensity heparin infusion and admitted under our services with consultation to cardiology. On the afternoon of 08/29/2023 received notification from RN that patient remains alert and oriented x 4 but was experiencing visual hallucinations stating that she sees a woman's head with hair at the foot of her bed. Stat [id number] glucose was obtained resulting at 112. BMP and magnesium levels were drawn showing hypokalemia and hypomagnesemia and electrolytes were replaced. CT brain was completed negative for acute intracranial process. Neurology was also consulted. TSH normal findings at 1.530. Patient underwent cardiac catheterization this morning resulting in successful stenting of distal RCA. Physical exam: Patient seen and fully evaluated at bedside this morning. She reports feeling great today, she has had no further episodes of confusion or reports of hallucinations. Patient is alert and oriented x 4. She denies having any complaints at this time. Patient's son at bedside visiting. Vital signs reviewed and stable. General: Nontoxic, no distress and appears stated age. Derm: Skin warm and dry, normal coloration for ethnicity. Head: Atraumatic, normocephalic and symmetric. Eyes: EOMs intact, no lid lag, and anicteric sclera Mouth: no lip lesions, mucus membranes moist Cardiovascular: regular rate and rhythm with normal S1S2, systolic murmur, positive posterior tibial pulses bilaterally, and cap refill < 2 seconds. Lungs: Respirations even, regular, and unlabored. Lungs slightly diminished with bibasilar crackles. No rhonchi, no rales, no wheezing, and no accessory muscle usage. Abdominal: soft, nontender to palpation, no guarding, no appreciable or ganomegaly Ext:. No gross muscle atrophy, 1+ pitting bilateral lower extremity edema, no contractures movement and sensation intact. No signs of hematoma or bleeding at cardiac cath access sites of right wrist or right groin. Neuro: Speech clear, face symmetrical and CN II-XII grossly intact with no noted focal neuro deficits Psych: Alert and oriented to person, place, time, and situation. Appropriate and pleasant affect. Assessment and Plan of Care: Elevated troponins, likely type II NSTEMI secondary to CHF Acute systolic congestive heart failure with EF of 25 to 30% Cardiomyopathy, unclear if ischemic versus nonischemic -Cardiology following, took patient for cardiac catheterization 06/30/2024 resulting in successful stenting of distal RCA and recommending continued close monitoring for an additional 24 hours. -Echocardiogram completed showing severely impaired EF of 25 to 30% with global hypokinesis, moderate mitral and mild tricuspid regurgitation -Continuous telemetry monitoring -Continue Daily weights and close monitoring of I's and O's -Cardiac diet -Continue Lasix 40 mg twice daily, Plavix 75 mg daily, aspirin 81 mg daily, atorvastatin 40 mg daily, carvedilol 6.25 mg twice daily, and losartan 50 mg nightly. -Continued close monitoring of electrolytes while diuresing. -Patient to be weaned down from oxygen. Acute alteration in mental status with visual hallucinations, unclear etiology possibly secondary to hospital associated delirium vs sleep deprivation. Re solved. Electrolyte abnormalities with hypokalemia and hypomagnesemia, resolved -CT brain negative for acute intracranial process showing nonspecific white matter changes likely secondary to chronic small vessel ischemic disease -Continue neurochecks every 4 hours and fall precautions -Neurology evaluated -Electrolytes replaced, will continue to follow closely with repeat BMP and magnesium levels to monitor for resolution and place additional orders as indicated based upon future lab results. -TSH normal findings at 1.530 Data and imaging reviewed: -Labs completed and reviewed. CBC unremarkable. BMP also unremarkable with sod ium 143, potassium 3.5, and renal function showing BUN of 14, creatinine 0.47, and GFR greater than 90. Magnesium 2.0. -Vital signs reviewed. Blood pressure 137/74, heart rate 74, respiratory rate 1 6, temp 98.1 F, SpO2 of 96% on 4 L. CODE STATUS: Full code DVT prophylaxis: Heparin Anticipated discharge date: Likely 24 to [address]: Home with home care Patient was seen independently by Nurse Pracitioner. This document was prepared using [employer] dictation software. Please allow for errors in administrative tech, while rare they do occur. Virgilio Lamas NP rendered care for this patient independently, reviewed the findings and plan as documented in the note above. I did not physically speak with or examine the patient on this date. Objective - Vital Signs Vital signs: Vital Signs Temp 98.0 F 08/31/23 20:32 Pulse 74 09/01/23 05:40 Resp 16 09/01/23 05:40 BP 137/74 09/01/23 05:40 Pulse Ox 96 09/01/23 05:40 FiO2 Intake & Output 08/31/23 09/01/23 09/01/23 18:59 06:59 18:59 Intake Total 540 240 Output Total 525 Balance 15 240 Intake: Oral 540 240 Output: Urine 525 Other: Voiding Method Toilet Toilet Incontinent Incontinent # Voids 150 2 # Bowel Movements 0 - Labs CBC & Chem 7: 09/01/23 07:38 09/01/23 07:38 Labs: Abnormal Lab Results - Last 24 Hours (Table) 08/31/23 Range/Units 08:13 Carbon Dioxide 32 H (22-30) mmol/L Glucose 117 H (74-99) mg/dL
[2023-09-01] MEDS: ALPRAZolam 0.5 MG TAB PO PRN (23:30)
[2023-09-02] MEDS: MAG HYDROX/AL HYDROX/SIMETH 30 ML CUP PO PRN (04:00)
[2023-09-02] MEDS: ONDANSETRON 4 MG/2 ML VIAL IVP PRN (04:10)
--- NOTE | 2023-09-02 09:50 | P.PN ---
Subjective Progress Note Date: 09/01/23 Patient was seen for follow-up. Patient's son was present as well as patient's granddaughter. They have not noticed any hallucinations in the last 24 hours. Yesterday in the morning when she woke up, she was slightly confused, but then shortly after became fully oriented and has been fine since then. Patient is getting Dilaudid sporadically for pain. Patient's son mentions that she slept very well for about 8 to 9 hours and feels much more refreshed. Patient was not able to sleep because of difficulty breathing and edema. Patient also had undergone cardiac catheterization and underwent cardiac stenting. CBC and Chem-7 are normal. Objective - Vital Signs Vital signs: Vital Signs Temp 98.1 F 09/01/23 10:10 Pulse 61 09/01/23 10:10 Resp 18 09/01/23 10:10 BP 116/74 09/01/23 10:10 Pulse Ox 98 09/01/23 10:10 FiO2 Intake & Output 08/31/23 09/01/23 09/01/23 18:59 06:59 18:59 Intake Total 540 240 Output Total 525 Balance 15 240 Intake: Oral 540 240 Output: Urine 525 Other: Voiding Method Toilet Toilet Toilet Incontinent Incontinent Incontinent # Voids 150 2 # Bowel Movements 0 - Exam Mental status, speech and language functions are normal. Cranial nerves are normal. Muscle strength normal. Sensory equal. - Labs CBC & Chem 7: 09/01/23 07:38 09/01/23 07:38 Labs: Abnormal Lab Results - Last 24 Hours (Table) 09/01/23 Range/Units 07:38 Creatinine 0.47 L (0.52-1.04) mg/dL Glucose 110 H (74-99) mg/dL Assessment and Plan Assessment: * Acute delirium, manifesting with delusions and hallucinations, probably multifactorial. Possible causes include sleep deprivation, hypoxemia, acute CHF, hospital induced delirium, and possible pulmonary edema and other metabol ic causes. * Acute CHF * Elevated cardiac enzymes * Hypertension * Hyperlipidemia * Medication noncompliance * Tobacco use Plan: Patient has not had any more hallucinations. She is doing well. Patient's family believes that she is almost back to baseline. She is still slightly short of breath. Neurological examination is nonfocal. 2-D echo revealed severely impaired left ventricular systolic function with global hypokinesis with EF 25 to 30%. Severely increased left atrial volume. Moderate MR. Fasting a.m. lipid panel cholesterol 243, LDL 174, HDL 47 and triglycerides 104. B12 499, folate 11.30, TSH 1.53. All normal. Await MMA. Continue aspirin and Lipitor. Telemetry monitoring rule out any arrhythmia PT, OT, speech therapy DVT prophylaxis: Heparin 5000 units subcu every 8 hours Recommend complete tobacco cessation. Neurologically, no other workup indicated. Neurology will sign off. Please reconsult neurology if any concerns.
--- NOTE | 2023-09-02 11:51 | P.PN ---
Subjective Progress Note Date: 09/02/23 Hospital course: Patient is a 78-year-old female with a past medical history of diverticulosis with recurrent GI bleeds resulting in significant anemia and need for blood transfusions, osteoarthritis degenerative arthritis lumbar sacral spine, and nicotine dependence. She presented to the emergency department on 08/28/2023 secondary to shortness of breath. Upon arrival to the emergency department patient underwent full evaluation. Vital signs upon arrival show blood pressure 150/82, heart rate 90, respiratory rate 20, temp 98.1 F, and SpO2 of 93% on room air. EKG completed showing normal sinus rhythm at 80 bpm with occasional PVCs and PACs and T wave inversion inferior leads II, III, and aVF. Chest x-ray completed showing cardiomegaly with pulmonary vascular congestion and bilateral pleural effusions. Labs completed and reviewed. CBC unremarkable. Coagulation profile normal findings. BMP showing mild hyperchloremia with chloride of 109 otherwise normal findings. Lactic acid 1.2. Magnesium 1.9. Liver profile unremarkable. Troponin elevated at 0.048 with proBNP of 6890. Patient started on low intensity heparin infusion and admitted under our services with consultation to cardiology. On the afternoon of 08/29/2023 received notification from RN that patient remains alert and oriented x 4 but was experiencing visual hallucinations stating that she sees a woman's head with hair at the foot of her bed. Stat [id number] glucose was obtained resulting at 112. BMP and magnesium levels were drawn showing hypokalemia and hypomagnesemia and electrolytes were replaced. CT brain was completed negative for acute intracranial process. Neurology was also consulted. TSH normal findings at 1.530. Patient underwent cardiac catheterization this morning resulting in successful stenting of distal RCA. Physical exam: Patient seen and fully evaluated at bedside this morning. Patient was being assisted into chair this morning at time of assessment. Per RN patient had a "rough morning" patient received Dilaudid for reports of pain resulting in sedation. Per RN patient also removed oxygen and was found to be 86% on room air and was placed on 4 L from oxygen increasing SpO2 to 94%. Patient currently denies having any complaints. Vital signs reviewed and stable. General: Nontoxic, no distress and appears stated age. Derm: Skin warm and dry, normal coloration for ethnicity. Head: Atraumatic, normocephalic and symmetric. Eyes: EOMs intact, no lid lag, and anicteric sclera Mouth: no lip lesions, mucus membranes moist Cardiovascular: regular rate and rhythm with normal S1S2, systolic murmur, positive posterior tibial pulses bilaterally, and cap refill < 2 seconds. Lungs: Respirations even, regular, and unlabored. Lungs slightly diminished with bibasilar crackles. No rhonchi, no rales, no wheezing, and no accessory muscle usage. Abdominal: soft, nontender to palpation, no guarding, no appreciable organomegaly Ext:. No gross muscle atrophy, scant bilateral lower extremity edema, no contractures movement and sensation intact. No signs of hematoma or bleeding at cardiac cath access sites of right wrist or right groin. Patient with mild bruising to right wrist. Neuro: Speech clear, face symmetrical and CN II-XII grossly intact with no noted focal neuro deficits Psych: Alert and oriented to person, place, time, and situation. Appropriate and pleasant affect. Assessment and Plan of Care: Acute systolic congestive heart failure with EF of 25 to 30% Elevated troponins, likely type II NSTEMI secondary to CHF Acute hypoxic respiratory failure secondary to above Cardiomyopathy, ischemic -Cardiology following, took patient for cardiac catheterization 06/30/2024 resulting in successful stenting of distal RCA and recommending continued close monitoring for an additional 24 hours. -Echocardiogram completed showing severely impaired EF of 25 to 30% with global hypokinesis, moderate mitral and mild tricuspid regurgitation -Continuous telemetry monitoring -Continue Daily weights and close monitoring of I's and O's -Cardiac diet -Continue Lasix 40 mg twice daily, Plavix 75 mg daily, aspirin 81 mg daily, atorvastatin 40 mg daily, carvedilol 6.25 mg twice daily, and losartan 50 mg nightly. -Continued close monitoring of electrolytes while diuresing. -Patient to be weaned down from oxygen. Acute alteration in mental status with visual hallucinations, unclear etiology possibly secondary to hospital associated delirium vs sleep deprivation. Resolved. Electrolyte abnormalities with hypokalemia and hypomagnesemia, resolved -CT brain negative for acute intracranial process showing nonspecific white matter changes likely secondary to chronic small vessel ischemic disease -Continue neurochecks every 4 hours and fall precautions -Neurology evaluated, clearing patient from neurological perspective -Electrolytes replaced, will continue to follow closely with repeat BMP and magnesium levels to monitor for resolution and place additional orders as i ndicated based upon future lab results. -TSH normal findings at 1.530 Data and imaging reviewed: -725 mL of documented urinary output over the past 24 hours -Vital signs reviewed. Blood pressure 133/87, heart rate 77, respiratory rate 18, temp 97.5 F, SpO2 of 94% on 4 L. CODE STATUS: Full code DVT prophylaxis: Heparin Anticipated discharge date: Likely 24 to [address]: Home with home care Patient was seen independently by Nurse Pracitioner. This document was prepared using [employer] dictation software. Please allow for errors in telecom network manager, while rare they do occur. I reviewed the documentation as provided by the DIMAS above, who is the original author of this note. I agree with the documented assessment and plan, with the following changes: none Objective - Vital Signs Vital signs: Vital Signs Temp 98.3 F 09/01/23 19:58 Pulse 71 09/02/23 04:00 Resp 18 09/02/23 04:00 BP 142/67 09/02/23 04:00 Pulse Ox 96 09/02/23 04:00 FiO2 Intake & Output 09/01/23 09/02/23 09/02/23 18:59 06:59 18:59 Intake Total 1520 Output Total 725 Balance 795 Intake: Oral 1520 Output: Urine 725 Other: Voiding Method Toilet Toilet Incontinent Incontinent # Voids 2 # Bowel Movements 0 - Labs CBC & Chem 7: 09/03/23 10:19 09/03/23 10:19 Labs: Abnormal Lab Results - Last 24 Hours (Table) 09/01/23 Range/Units 07:38 Creatinine 0.47 L (0.52-1.04) mg/dL Glucose 110 H (74-99) mg/dL
--- NOTE | 2023-09-02 14:49 | P.PN ---
Subjective HISTORY OF PRESENT ILLNESS: This is a 78-year-old female with a past medical history significant for GI bleed, osteoarthritis, and nicotine dependence. Patient does not follow with a psychology assistant. We have been asked to see the patient in consultation for new cardiomyopathy. Patient examined at the bedside in the emergency room. The patient presented to the hospital with a chief complaint of shortness of breath for the past week. She denied any chest pain or pressure. She also reports increased lower extremity edema. Patient son is at the bedside and believes she has a history of hypertension and hyperlipidemia but she has stopped taking all of her medications about 3 years ago. She also has not been following with a PCP for about 3 years. Patient is a current cigarette smoker and smokes about 1 pack/day. She denies any alcohol use. DIAGNOSTICS: - EKG reveals sinus mechanism with PVCs. - Chest xray cardiomegaly, pulmonary vascular congestion and bilateral pleural effusions. - Laboratory data: WBC 10.5. Hemoglobin 14.4. Platelet count 214. Sodium 142. Potassium 3.5. BUN 12. Creatinine 0.51. Lactic acid 1.2. Troponin 0.048. 0.051. 0.056. proBNP 6890. - Current home cardiac medications include none. 08/30/2023 Patient examined this morning the bedside. She is sitting on the side of the bed. Patient denies any chest pain or pressure. She reports improvement in her shortness of breath. She remains on IV Lasix. Echocardiogram completed revealing ejection fraction 25 to 30%, mild pulmonary hypertension, moderate MR, mild TR 09/01/2023 Patient is status postcardiac catheterization with PTCA and stenting of the proximal RCA and shockwave lithotripsy of heavily calcified right coronary artery. Patient examined this morning at the bedside. Patient denies chest pain or pressure. She denies shortness of breath. Vital signs are stable. Right femoral cath site with pulse present. No hematoma noted. 09/02/2023 Patient seen and examined sitting up in the chair in no acute distress. She denies chest pain, shortness of breath, dizziness or palpitations. Blood pressure 103/62 heart rate 60 afebrile maintaining oxygen saturation on nasal cannula. Short runs of NSVT noted on telemetry this morning. PHYSICAL EXAM: VITAL SIGNS: Reviewed. GENERAL: Well-developed in no acute distress. HEENT: Head is normocephalic. Pupils are equal, round. Sclerae anicteric. Mucous membranes of the mouth are moist. LUNGS: Respirations even and unlabored. Lungs diminished bilaterally HEART: Regular rate and rhythm. S1 and S2 heard. ABDOMEN: Soft. Nondistended. Nontender. EXTREMITIES: Normal range of motion. No clubbing or cyanosis. Peripheral pulses intact. 1+ lower extremity edema NEUROLOGIC: Awake and alert. Oriented x 3. ASSESSMENT: Shortness of breath Acute heart failure with reduced EF, 25 to 30% with NSVT on telemetry this morning post PCI New onset cardiomyopathy, ischemic, status post cardiac catheterization with stenting of the proximal RCA Bilateral pleural effusions Elevated troponins, flat, likely type II NE History of GI bleeding Osteoarthritis Nicotine dependence, patient smokes 1 pack/day Hypertension Hyperlipidemia, LDL 174.9 History of medication noncompliance, patient stopped taking medications 3 years ago Hypokalemia Hypomagnesemia PLAN: Discontinue losartan, last dose was last night. Initiate and entresto 24/26 mg by mouth twice a day first dose tomorrow morning. New Rx sent to her pharmacy. Start farxiga 10 mg daily. Continue dual antiplatelet therapy with aspirin and Plavix Continue high intensity statin Continue additional cardiac medications Life Vest initiated prior to discharge with expectation that they will contact her at home and set up the system per Dr. Holloway She is to follow-up postdischarge with Dr. Lee Smoking cessation recommended Nurse practitioner note has been reviewed by physician. Signing provider agrees with the documented findings, assessment, and plan of care documented by FAMILY AND CONSUMER SCIENCES PROFESSOR as a scribe. Objective - Vital Signs Vital signs: Vital Signs Temp 97.5 F L 09/02/23 09:03 Pulse 77 09/02/23 09:03 Resp 18 09/02/23 09:03 BP 133/87 09/02/23 09:03 Pulse Ox 94 L 09/02/23 09:03 FiO2 Intake & Output 09/01/23 09/02/23 09/02/23 18:59 06:59 18:59 Intake Total 1520 Output Total 725 Balance 795 Intake: Oral 1520 Output: Urine 725 Other: Voiding Method Toilet Toilet Toilet Incontinent Incontinent Incontinent # Voids 2 # Bowel Movements 0 - Labs CBC & Chem 7: 09/01/23 07:38 09/01/23 07:38
[2023-09-02] MEDS: DAPAGLIFLOZIN PROPANEDIOL 10 MG TABLET PO SCH (16:41)
[2023-09-02] MEDS: SACUBITRIL/VALSARTAN 24 MG-26 MG TABLET PO SCH (21:02)
[2023-09-03] MEDS ORDERED: SACUBITRIL/VALSARTAN 24 MG-26 MG TABLET PO SCH (09:00)
[2023-09-03 10:31] LABS: HCT 37.2 % (34.0-46.0); HGB 11.9 gm/dL (11.4-16.0); MCH 31.5 pg (25.0-35.0); MCHC 32.1 g/dL (31.0-37.0); MCV 98.1 fL (80.0-100.0); Mean Platelet Volume 11.6; RBC 3.79 m/uL (3.80-5.40); RDW 12.9 % (11.5-15.5)
[2023-09-03 10:51] LABS: ALT 10 U/L (4-34); AST 26 U/L (14-36); African American GFR (CKD) >90 (>60 ml/min/1.73 sqM); Albumin 3.3 g/dL (3.5-5.0); Alkaline Phosphatase 63 U/L (38-126); Anion Gap 2 mmol/L; Blood Urea Nitrogen 12 mg/dL (7-17); Calcium 8.5 mg/dL (8.4-10.2); Carbon Dioxide 37 mmol/L (22-30); Chloride 102 mmol/L (98-107); Glucose 122 mg/dL (74-99); Non-African American GFR(CKD) >90 (>60 ml/min/1.73 sqM); Potassium 3.3 mmol/L (3.5-5.1); Sodium 141 mmol/L (137-145); Total Bilirubin 0.5 mg/dL (0.2-1.3); Total Protein 5.9 g/dL (6.3-8.2)
[2023-09-03 12:01] LABS: Platelet Count 164 k/uL (150-450)
[2023-09-03] MEDS: SPIRONOLACTONE 25 MG TAB PO SCH (12:37)
--- NOTE | 2023-09-03 13:32 | P.PN ---
Subjective HISTORY OF PRESENT ILLNESS: This is a 78-year-old female with a past medical history significant for GI bleed, osteoarthritis, and nicotine dependence. Patient does not follow with a local area network administrator. We have been asked to see the patient in consultation for new cardiomyopathy. Patient examined at the bedside in the emergency room. The patient presented to the hospital with a chief complaint of shortness of breath for the past week. She denied any chest pain or pressure. She also reports increased lower extremity edema. Patient son is at the bedside and believes she has a history of hypertension and hyperlipidemia but she has stopped taking all of her medications about 3 years ago. She also has not been following with a PCP for about 3 years. Patient is a current cigarette smoker and smokes about 1 pack/day. She denies any alcohol use. DIAGNOSTICS: - EKG reveals sinus mechanism with PVCs. - Chest xray cardiomegaly, pulmonary vascular congestion and bilateral pleural effusions. - Laboratory data: WBC 10.5. Hemoglobin 14.4. Platelet count 214. Sodium 142. Potassium 3.5. BUN 12. Creatinine 0.51. Lactic acid 1.2. Troponin 0.048. 0.051. 0.056. proBNP 6890. - Current home cardiac medications include none. 08/30/2023 Patient examined this morning the bedside. She is sitting on the side of the bed. Patient denies any chest pain or pressure. She reports improvement in her shortness of breath. She remains on IV Lasix. Echocardiogram completed revealing ejection fraction 25 to 30%, mild pulmonary hypertension, moderate MR, mild TR 09/01/2023 Patient is status postcardiac catheterization with PTCA and stenting of the proximal RCA and shockwave lithotripsy of heavily calcified right coronary artery. Patient examined this morning at the bedside. Patient denies chest pain or pressure. She denies shortness of breath. Vital signs are stable. Right femoral cath site with pulse present. No hematoma noted. 09/02/2023 Patient seen and examined sitting up in the chair in no acute distress. She denies chest pain, shortness of breath, dizziness or palpitations. Blood pressure 103/62 heart rate 60 afebrile maintaining oxygen saturation on nasal cannula. Short runs of NSVT noted on telemetry this morning. 09/03/2023 Pt seen and examined sitting up in the chair with visitor at the bedside. She is being evaluated for home oxygen. Blood pressure 113/69 heart rate 64 afebrile maintaining oxygen saturation on room air. Oratory data reviewed, sodium 141, potassium 3.3, creatinine 0.54. PHYSICAL EXAM: VITAL SIGNS: Reviewed. GENERAL: Well-developed in no acute distress. HEENT: Head is normocephalic. Pupils are equal, round. Sclerae anicteric. Mucous membranes of the mouth are moist. LUNGS: Respirations even and unlabored. Lungs diminished bilaterally HEART: Regular rate and rhythm. S1 and S2 heard. ABDOMEN: Soft. Nondistended. Nontender. EXTREMITIES: Normal range of motion. No clubbing or cyanosis. Peripheral pulses intact. 1+ lower extremity edema NEUROLOGIC: Awake and alert. Oriented x 3. ASSESSMENT: Shortness of breath Acute heart failure with reduced EF, 25 to 30% with NSVT on telemetry this morning post PCI New onset cardiomyopathy, ischemic, status post cardiac catheterization with stenting of the proximal RCA Bilateral pleural effusions Elevated troponins, flat, likely type II [place] History of GI bleeding Osteoarthritis Nicotine dependence, patient smokes 1 pack/day Hypertension Hyperlipidemia, LDL 174.9 History of medication noncompliance, patient stopped taking medications 3 years ago Hypokalemia Hypomagnesemia PLAN: Add Aldactone 12.5 mg daily. LifeVest will be applied tomorrow and then she can be discharged. She is to follow-up postdischarge with Dr. Lee Smoking cessation recommended Nurse practitioner note has been reviewed by physician. Signing provider agrees with the documented findings, assessment, and plan of care documented by SLOPE RUNNER as a scribe. Objective - Vital Signs Vital signs: Vital Signs Temp 97.9 F 09/03/23 08:01 Pulse 64 09/03/23 08:01 Resp 20 09/03/23 08:01 BP 113/69 09/03/23 08:01 Pulse Ox 91 L 09/03/23 08:01 FiO2 Intake & Output 09/02/23 09/03/23 09/03/23 18:59 06:59 18:59 Intake Total 240 178 Output Total 300 300 Balance -60 -300 178 Intake: Oral 240 178 Output: Urine 300 300 Other: Voiding Method Toilet Toilet Toilet Incontinent Incontinent Incontinent - Labs CBC & Chem 7: 09/03/23 10:19 09/03/23 10:19 Labs: Abnormal Lab Results - Last 24 Hours (Table) 09/03/23 09/03/23 Range/Units 10:19 10:19 RBC 3.79 L (3.80-5.40) m/uL Potassium 3.3 L (3.5-5.1) mmol/L Carbon Dioxide 37 H (22-30) mmol/L Glucose 122 H (74-99) mg/dL Total Protein 5.9 L (6.3-8.2) g/dL Albumin 3.3 L (3.5-5.0) g/dL
--- NOTE | 2023-09-03 14:15 | P.PN ---
Subjective Progress Note Date: 09/03/23 Hospital course: Patient is a 78-year-old female with a past medical history of diverticulosis with recurrent GI bleeds resulting in significant anemia and need for blood transfusions, osteoarthritis degenerative arthritis lumbar sacral spine, and nicotine dependence. She presented to the emergency department on 08/28/2023 secondary to shortness of breath. Upon arrival to the emergency department patient underwent full evaluation. Vital signs upon arrival show blood pressure 150/82, heart rate 90, respiratory rate 20, temp 98.1 F, and SpO2 of 93% on room air. EKG completed showing normal sinus rhythm at 80 bpm with occasional PVCs and PACs and T wave inversion inferior leads II, III, and aVF. Chest x-ray completed showing cardiomegaly with pulmonary vascular congestion and bilateral pleural effusions. Labs completed and reviewed. CBC unremarkable. Coagulation profile normal findings. BMP showing mild hyperchloremia with chloride of 109 otherwise normal findings. Lactic acid 1.2. Magnesium 1.9. Liver profile unremarkable. Troponin elevated at 0.048 with proBNP of 6890. Patient started on low intensity heparin infusion and admitted under our services with consultation to cardiology. On the afternoon of 08/29/2023 received notification from RN that patient remains alert and oriented x 4 but was experiencing visual hallucinations stating that she sees a woman's head with hair at the foot of her bed. Stat [id number] glucose was obtained resulting at 112. BMP and magnesium levels were drawn showing hypokalemia and hypomagnesemia and electrolytes were replaced. CT brain was completed negative for acute intracranial process. Neurology was also consulted. TSH normal findings at 1.530. Patient underwent cardiac catheterization on 08/31/23 resulting in successful stenting of distal RCA. Physical exam: Patient seen and fully evaluated at bedside this morning. She continues to re quire 4 L O2 via nasal cannula with current SpO2 of 91%. Attempts were made to wean patient down from oxygen however unsuccessful patient will require home oxygen upon discharge. Vital signs reviewed and stable. General: Nontoxic, no distress and appears stated age. Derm: Skin warm and dry, normal coloration for ethnicity. Head: Atraumatic, normocephalic and symmetric. Eyes: EOMs intact, no lid lag, and anicteric sclera Mouth: no lip lesions, mucus membranes moist Cardiovascular: regular rate and rhythm with normal S1S2, systolic murmur, positive posterior tibial pulses bilaterally, and cap refill < 2 seconds. Lungs: Respirations even, regular, and unlabored. Lungs slightly diminished with bibasilar crackles. No rhonchi, no rales, no wheezing, and no accessory muscle usage. Abdominal: soft, nontender to palpation, no guarding, no appreciable organomegaly Ext:. No gross muscle atrophy, scant bilateral lower extremity edema, no contractures movement and sensation intact. No signs of hematoma or bleeding at cardiac cath access sites of right wrist or right groin. Patient with mild bruising to right wrist. Neuro: Speech clear, face symmetrical and CN II-XII grossly intact with no noted focal neuro deficits Psych: Alert and oriented to person, place, time, and situation. Appropriate and pleasant affect. Assessment and Plan of Care: Acute systolic congestive heart failure with EF of 25 to 30% Elevated troponins, likely type II NSTEMI secondary to CHF Acute hypoxic respiratory failure secondary to above Cardiomyopathy, ischemic -Cardiology following, took patient for cardiac catheterization 08/31/2023 resulting in successful stenting of distal RCA. Cardiology reporting patient cleared from cardiac perspective for discharge after life vest is applied tomorrow morning. -Echocardiogram completed showing severely impaired EF of 25 to 30% with global hypokinesis, moderate mitral and mild tricuspid regurgitation -Continuous telemetry monitoring -Continue Daily weights and close monitoring of I's and O's -Cardiac diet -Continue Lasix 40 mg twice daily, Plavix 75 mg daily, aspirin 81 mg daily, tania rvastatin 40 mg daily, carvedilol 6.25 mg twice daily, Farxiga 10 mg daily, Entresto 24 mg-26 mg tablet twice daily, and Aldactone 12.5 mg daily. -Continued close monitoring of electrolytes and replace abnormal electrolyte values as needed. -Attempts made at weaning patient down from oxygen, patient will require home O2. Acute alteration in mental status with visual hallucinations, unclear etiology possibly secondary to hospital associated delirium vs sleep deprivation. Re solved. Electrolyte abnormalities with hypokalemia and hypomagnesemia, resolved -CT brain negative for acute intracranial process showing nonspecific white matter changes likely secondary to chronic small vessel ischemic disease -Continue neurochecks every 4 hours and fall precautions -Neurology evaluated, clearing patient from neurological perspective -Electrolytes replaced, will continue to follow closely with repeat BMP and magnesium levels to monitor for resolution and place additional orders as indicated based upon future lab results. -TSH normal findings at 1.530 Data and imaging reviewed: -600 mL of documented urinary output over the past 24 hours -Vital signs reviewed. Blood pressure 113/69, heart rate 64, respiratory rate 20, temp 97.9 F, SpO2 of 91% on 4 L -Morning labs reviewed. CBC unremarkable. BMP showing hypokalemia with potassium of 3.3 and hypercarbia with bicarb of 37. CODE STATUS: Full code DVT prophylaxis: Heparin Anticipated discharge date: Tomorrow morning, patient may be discharged tomorrow morning once life vest is applied and oxygen is delivered. Anticipated discharge place: Home with home care Patient was seen independently by Nurse Pracitioner. This document was prepared using [employer] dictation software. Please allow for errors in concrete analyst, while rare they do occur. Virgilio Lamas NP rendered care for this patient independently, reviewed the findings and plan as documented in the note above. I did not physically speak with or examine the patient on this date. Objective - Vital Signs Vital signs: Vital Signs Temp 97.9 F 09/03/23 08:01 Pulse 64 09/03/23 08:01 Resp 20 09/03/23 08:01 BP 113/69 09/03/23 08:01 Pulse Ox 91 L 09/03/23 08:01 FiO2 Intake & Output 09/02/23 09/03/23 09/03/23 18:59 06:59 18:59 Intake Total 240 Output Total 300 300 Balance -60 -300 Intake: Oral 240 Output: Urine 300 300 Other: Voiding Method Toilet Toilet Incontinent Incontinent - Labs CBC & Chem 7: 09/03/23 10:19 09/03/23 10:19
[2023-09-03] MEDS: POTASSIUM CHLORIDE ER 20 MEQ TAB.ER PO STA (16:48)
[2023-09-04 07:04] VITALS: RESP 18
[2023-09-04] MEDS: POTASSIUM CHLORIDE ER 20 MEQ TAB.ER PO STA (10:56)
[2023-09-04] MEDS: POTASSIUM CHLORIDE ER 10 MEQ TAB.ER.PRT PO SCH (10:56)
[2023-09-04 11:03] VITALS: BP 94/59; TEMP 97.4
[2023-09-04 11:04] VITALS: PULSE 56
[2023-09-04] MEDS: FUROSEMIDE 20 MG TAB PO SCH (11:05)
--- NOTE | 2023-09-04 11:28 | P.PN ---
Subjective Progress Note Date: 09/04/23 HISTORY OF PRESENT ILLNESS: This is a 78-year-old female with a past medical history significant for GI bleed, osteoarthritis, and nicotine dependence. Patient does not follow with a insurance assistant. We have been asked to see the patient in consultation for new cardiomyopathy. Patient examined at the bedside in the emergency room. The patient presented to the hospital with a chief complaint of shortness of breath for the past week. She denied any chest pain or pressure. She also reports increased lower extremity edema. Patient son is at the bedside and believes she has a history of hypertension and hyperlipidemia but she has stopped taking all of her medications about 3 years ago. She also has not been following with a PCP for about 3 years. Patient is a current cigarette smoker and smokes about 1 pack/day. She denies any alcohol use. DIAGNOSTICS: - EKG reveals sinus mechanism with PVCs. - Chest xray cardiomegaly, pulmonary vascular congestion and bilateral pleural effusions. - Laboratory data: WBC 10.5. Hemoglobin 14.4. Platelet count 214. Sodium 142. Potassium 3.5. BUN 12. Creatinine 0.51. Lactic acid 1.2. Troponin 0.048. 0.051. 0.056. proBNP 6890. - Current home cardiac medications include none. 08/30/2023 Patient examined this morning the bedside. She is sitting on the side of the bed. Patient denies any chest pain or pressure. She reports improvement in her shortness of breath. She remains on IV Lasix. Echocardiogram completed revealing ejection fraction 25 to 30%, mild pulmonary hypertension, moderate MR, mild TR 09/01/2023 Patient is status postcardiac catheterization with PTCA and stenting of the proximal RCA and shockwave lithotripsy of heavily calcified right coronary artery. Patient examined this morning at the bedside. Patient denies chest pain or pressure. She denies shortness of breath. Vital signs are stable. Right femoral cath site with pulse present. No hematoma noted. 09/02/2023 Patient seen and examined sitting up in the chair in no acute distress. She denies chest pain, shortness of breath, dizziness or palpitations. Blood pressure 103/62 heart rate 60 afebrile maintaining oxygen saturation on nasal cannula. Short runs of NSVT noted on telemetry this morning. 09/03/2023 Pt seen and examined sitting up in the chair with visitor at the bedside. She is being evaluated for home oxygen. Blood pressure 113/69 heart rate 64 afebrile maintaining oxygen saturation on room air. Oratory data reviewed, sodium 141, potassium 3.3, creatinine 0.54. 09/04 Patient states that she is ready to go home. She denies having any chest pain. No significant shortness of breath. No lightheadedness or dizziness. Blood pressure is 94/59, heart rate in the 50s, pulse ox 96% on 4 L nasal cannula. Repeat blood work reveals sodium 141, potassium 3.3. BUN 12 and creatinine 0.54. PHYSICAL EXAM: VITAL SIGNS: Reviewed. GENERAL: Well-developed in no acute distress. HEENT: Head is normocephalic. Pupils are equal, round. Sclerae anicteric. Mucous membranes of the mouth are moist. LUNGS: Respirations even and unlabored. Lungs diminished bilaterally HEART: Regular rate and rhythm. S1 and S2 heard. ABDOMEN: Soft. Nondistended. Nontender. EXTREMITIES: No clubbing or cyanosis. Peripheral pulses intact. 1+ lower extremity edema NEUROLOGIC: Awake and alert. Oriented x 3. ASSESSMENT: Shortness of breath Acute heart failure with reduced EF, 25 to 30% with NSVT on telemetry this morning post PCI New onset cardiomyopathy, ischemic, status post cardiac catheterization with stenting of the proximal RCA Bilateral pleural effusions Elevated troponins, flat, likely type II [place] History of GI bleeding Osteoarthritis Nicotine dependence, patient smokes 1 pack/day Hypertension Hyperlipidemia, LDL 174.9 History of medication noncompliance, patient stopped taking medications 3 years ago Hypokalemia Hypomagnesemia PLAN: Continue the addition of Aldactone 12.5 mg daily. Replace potassium Add Lasix 20 mg daily and potassium 10 mill equivalents daily LifeVest will be applied and then she can be discharged. She is to follow-up postdischarge with Dr. Lee Smoking cessation recommended Nurse practitioner note has been reviewed by physician. Signing provider agrees with the documented findings, assessment, and plan of care documented by MOLD[employer] CANDLES WICKER as a scribe. Objective Objective - Vital Signs Vital signs: Vital Signs Temp 98.1 F 09/03/23 16:00 Pulse 59 L 09/04/23 04:00 Resp 18 09/04/23 04:00 BP 92/50 09/04/23 04:00 Pulse Ox 97 09/04/23 04:00 FiO2 Intake & Output 02/11/24 02/12/24 02/12/24 18:59 06:59 18:59 Intake Total 178 120 Balance 178 120 Intake: Oral 178 120 Other: Voiding Method Toilet Toilet Incontinent Incontinent # Voids 3 1 # Bowel Movements 1 - Labs CBC & Chem 7: 09/03/23 10:19 09/03/23 10:19 Labs: Abnormal Lab Results - Last 24 Hours (Table) 09/03/23 09/03/23 Range/Units 10:19 10:19 RBC 3.79 L (3.80-5.40) m/uL Potassium 3.3 L (3.5-5.1) mmol/L Carbon Dioxide 37 H (22-30) mmol/L Glucose 122 H (74-99) mg/dL Total Protein 5.9 L (6.3-8.2) g/dL Albumin 3.3 L (3.5-5.0) g/dL
--- NOTE | 2023-09-04 13:29 | P.DS ---
Providers Date of admission: 08/28/23 21:45 Expected date of discharge: 09/04/23 Attending physician: George Montemayor MD Consults: 08/28/23 21:42 Consult Physician Routine Consulting Provider: Patricio Holloway Consult Reason/Comments: new cardiomyopathy, nstemi Do you want consulting provider notified?: Yes 08/29/23 11:37 Consult Physician Routine Consulting Provider: Christopher Sarah Consult Reason/Comments: confusion, hallucinations Do you want consulting provider notified?: Yes 08/31/23 10:48 Consult Physician Routine Consulting Provider: [facility] Consult Reason/Comments: Post Interventional Patient Do you want consulting provider notified?: Already Contacted Primary care physician: Stated None Hospital Course: Discharge Diagnosis: Acute systolic congestive heart failure with EF of 25 to 30%. Elevated troponins, likely type II NSTEMI secondary to CHF. Acute hypoxic respiratory failure secondary to above Cardiomyopathy, ischemic Acute alteration in mental status with visual hallucinations, unclear etiology possibly secondary to hospital associated delirium vs sleep deprivation. Resolved. Electrolyte abnormalities with hypokalemia and hypomagnesemia, resolved. Hospital course: Patient is a 78-year-old female with a past medical history of diverticulosis with recurrent GI bleeds resulting in significant anemia and need for blood transfusions, osteoarthritis degenerative arthritis lumbar sacral spine, and nicotine dependence. She presented to the emergency department on 08/28/2023 secondary to shortness of breath. Upon arrival to the emergency department patient underwent full evaluation. Vital signs upon arrival show blood pressure 150/82, heart rate 90, respiratory rate 20, temp 98.1 F, and SpO2 of 93% on room air. EKG completed showing normal sinus rhythm at 80 bpm with occasional PVCs and PACs and T wave inversion inferior leads II, III, and aVF. Chest x-ray completed showing cardiomegaly with pulmonary vascular congestion and bilateral pleural effusions. Labs completed and reviewed. CBC unremarkable. Coagulation profile normal findings. BMP showing mild hyperchloremia with chloride of 109 otherwise normal findings. Lactic acid 1.2. Magnesium 1.9. Liver profile unremarkable. Troponin elevated at 0.048 with proBNP of 6890. Patient started on low intensity heparin infusion and admitted under our services with consultation to cardiology. On the afternoon of 08/29/2023 received notification from RN that patient remains alert and oriented x 4 but was experiencing visual hallucinations stating that she sees a woman's head with hair at the foot of her bed. Stat [id number] glucose was obtained resulting at 112. BMP and magnesium levels were drawn showing hypokalemia and hypomagnesemia and electrolytes were replaced. CT brain was completed negative for acute intra cranial process. Neurology was also consulted. TSH normal findings at 1.530. Patient underwent cardiac catheterization on 08/31/23 resulting in successful stenting of distal RCA. Heart failure medications were optimized throughout patient's hospitalization. Patient discharged home on aspirin 81 mg daily, atorvastatin 40 mg daily, Plavix 75 mg daily, carvedilol 6.25 mg twice daily, Lasix 20 mg daily, Entresto 24/26 mg tablets twice daily, Farxiga 10 mg daily, and Aldactone 12.5 mg daily. Life vest was applied prior to patient's discharged. In addition patient discharged home on continuous home oxygen. Patient being discharged home with her son along with [facility]. Patient to follow-up with PCP in 1 to 2 days and cardiology in 1 week. Physical exam: Vital signs reviewed and stable. General: Nontoxic, no distress and appears stated age. Derm: Skin warm and dry, normal coloration for ethnicity. Head: Atraumatic, normocephalic and symmetric. Eyes: EOMs intact, no lid lag, and anicteric sclera Mouth: no lip lesions, mucus membranes moist Cardiovascular: regular rate and rhythm with normal S1S2, systolic murmur, positive posterior tibial pulses bilaterally, and cap refill < 2 seconds. Lungs: Respirations even, regular, and unlabored. Lungs slightly diminished with bibasilar crackles. No rhonchi, no rales, no wheezing, and no accessory muscle usage. Abdominal: soft, nontender to palpation, no guarding, no appreciable organomegaly Ext:. No gross muscle atrophy, scant bilateral lower extremity edema, no contractures movement and sensation intact. No signs of hematoma or bleeding at cardiac cath access sites of right wrist or right groin. Patient with mild bruising to right wrist. Neuro: Speech clear, face symmetrical and CN II-XII grossly intact with no noted focal neuro deficits Psych: Alert and oriented to person, place, time, and situation. Appropriate and pleasant affect. A total of 39 minutes of time were spent preparing this complex discharge summary. Pt was discharged on 09/04/2023 at 1:21 PM. Patient was seen independently by Nurse Practitioner. This document was prepared using [employer] dictation software. Please allow for errors in pipe layer while rare they do occur. Virgilio Lamas NP rendered care for this patient independently, reviewed the findings and plan as documented in the note above. I did not physically speak with or examine the patient on this date. Patient Condition at Discharge: Stable Plan - Discharge Summary Discharge Rx Participant: No New Discharge Prescriptions: New Aspirin 81 mg PO DAILY #90 tab Atorvastatin [Lipitor] 40 mg PO DAILY #90 tab Clopidogrel [Plavix] 75 mg PO DAILY #90 tab carvediloL [Coreg] 6.25 mg PO BID-W/MEALS #180 tab Furosemide [Lasix] 20 mg PO DAILY #90 tab Nitroglycerin Sl Tabs [Nitrostat] 0.4 mg SUBLINGUAL Q5M PRN #100 tab PRN Reason: Chest Pain Sacubitril/Valsartan [Entresto 24 mg-26 mg Tablet] 1 each PO BID #180 tab Dapagliflozin Propanediol [Farxiga] 10 mg PO DAILY #90 tab Spironolactone [Aldactone] 12.5 mg PO DAILY 90 Days #45 tab Discharge Medication List Aspirin 81 mg PO DAILY #90 tab 09/01/23 [Rx] Atorvastatin [Lipitor] 40 mg PO DAILY #90 tab 09/01/23 [Rx] Clopidogrel [Plavix] 75 mg PO DAILY #90 tab 09/01/23 [Rx] Furosemide [Lasix] 20 mg PO DAILY #90 tab 09/01/23 [Rx] Nitroglycerin Sl Tabs [Nitrostat] 0.4 mg SUBLINGUAL Q5M PRN #100 tab 09/01/23 [Rx] carvediloL [Coreg] 6.25 mg PO BID-W/MEALS #180 tab 09/01/23 [Rx] Dapagliflozin Propanediol [Farxiga] 10 mg PO DAILY #90 tab 09/02/23 [Rx] Sacubitril/Valsartan [Entresto 24 mg-26 mg Tablet] 1 each PO BID #180 tab 09/02/23 [Rx] Spironolactone [Aldactone] 12.5 mg PO DAILY 90 Days #45 tab 09/04/23 [Rx] Follow up Appointment(s)/Referral(s): Blanca Lee MD [STAFF PHYSICIAN] - 1 Week (Office will call you with appointment date and time) Christiana Hu MD [STAFF PHYSICIAN] - (Call and set up appointment to establish a primary care physician ) SIMRAN Visiting Nurse, [NON-STAFF] - (Need to establish with primary care doctor before homecare can start) Patient Instructions/Handouts: Heart Failure (DC), Coronary Intravascular Stent Placement (DC) Activity/Diet/Wound Care/Special Instructions: Activity: As tolerated. Take breaks as needed. Diet: Heart healthy and carb consistent diet. Avoid salts, or foods with hidden salts such as canned or boxed foods and frozen dinners. Extra salt makes your heart work harder and traps the fluid in your body for longer. Special Instructions: Weigh yourself every morning after you urinate. If you gain 3 pounds overnight or more than 5 pounds in one week, call your primary physician and ground host/hostess for guidance on your medications or they may want to see you in their office. Keep a daily log of your weights and be sure to bring with you at follow up visits with your PCP and ground host/hostess. You are being discharged home on oxygen, it is important to wear this at all times including while sleeping and showering. You are being discharged home with LifeVest, you and your family were provided with instructions at bedside, please follow closely and call number provided to you in packet if you have any questions. Take all of your medications as directed, especially your water pills. NEVER skip a dose. And remember to keep all of your doctor's appointments and follow- up as needed. Elevate your legs when you are not up moving around to help with circulation and prevent swelling. Compression stockings are also a great way to improve lower extremity circulation and prevent/improve lower extremity edema. Call your primary care provider and ground host/hostess if you notice any extra swelling in your legs, ankles, feet or abdomen, if you have a new dry cough, if your shortness of breath worsens with activity or at rest, or if you feel more fatigued. Thank you for allowing us to participate in your care, it was truly a pleasure having you for our patient!!! Discharge/Stand Alone Forms: Who Do I Call?, Personal Pack Puller, Area PCPs Discharge Disposition: HOME WITH HOME HEALTH SERVICES
[2023-09-04] MEDS ORDERED: carvediloL 3.125 MG TAB PO SCH (17:30)
--- NOTE | 2023-09-05 12:29 | CDI ---
Documentation Clarification Form Date: 09/05/2023 12:09:38 PM From: Teresa Abarca Phone: Admit Date: 08/28/2023 09:45:00 PM Patient Name: Adelita Peter Visit Number: [id number] Discharge Date: 09/04/2023 02:25:00 PM ATTENTION: The Clinical Documentation Specialists (CDI) and [facility] Coding Staff appreciate your assistance in clarifying documentation. Please respond to the clarification below the line at the bottom and electronically sign. The CDI & [facility] Coding staff will review the response and follow-up if needed. Please note: Queries are made part of the Legal Health Record. If you have any questions, please contact the author of this message via ITS. Dr. Juliane Roman Your patient is receiving the following: patient discharged home oncontinuous home oxygen per DC Summary. Please clarify what condition/diagnosis is being treated. History/Risk Factors: 78yo F, HTN, ASCF, NSTEMI II, AHRF, ICM, HLD, PVC, Rx noncompliance, hypokalemia,hypomagnesemia Tobacco use: heavysmoker Home oxygen: patient discharged home oncontinuous home oxygen Clinical Indicators: Vital signs: T 98.1 MD 80-90 R 18-20 BP 150/82 O2 93-94 Treatment: supplemental oxygen 3 L maintaining SpO2 of 93% What diagnosis are you treating with continuous home oxygen? [ ] Chronic Respiratory Failure [ ] COPD [ ] No additional diagnosis [ X ] Other, please specify [ ] Unable to determine (Template Last Reviewed: August 2020) Requiring oxygen on discharge due to CHF -- the was acute hypoxic respiratory failure/ MTDD
== END 2023-09-04 14:25 | disposition home health service (06) | DRG 323 ==
LOC: EC 18:44 → 3SCARD 21:45
PROVIDERS: ADMIT Internal Medicine; ATTEND Internal Medicine
PROC: 027034Z Dilation of Coronary Artery, One Artery with Drug-eluting Intraluminal Device, Percutaneous Approach (ICD-10-PCS; principal; 2023-08-31 09:00)
PROC: 02F03ZZ Fragmentation in Coronary Artery, One Artery, Percutaneous Approach (ICD-10-PCS; 2023-08-31 09:00)
PROC: B240ZZ3 Ultrasonography of Single Coronary Artery, Intravascular (ICD-10-PCS; 2023-08-31 09:00)
DX: I11.0 Hypertensive heart disease with heart failure (principal); I21.A1 Myocardial infarction type 2; J96.01 Acute respiratory failure with hypoxia; I50.21 Acute systolic (congestive) heart failure; I47.20 Ventricular tachycardia, unspecified; F05 Delirium due to known physiological condition; I27.22 Pulmonary hypertension due to left heart disease; E87.8 Other disorders of electrolyte and fluid balance, not elsewhere classified; Z99.81 Dependence on supplemental oxygen; I08.1 Rheumatic disorders of both mitral and tricuspid valves; I25.5 Ischemic cardiomyopathy; M19.90 Unspecified osteoarthritis, unspecified site; M47.816 Spondylosis without myelopathy or radiculopathy, lumbar region; F17.210 Nicotine dependence, cigarettes, uncomplicated; T50.916A Underdosing of multiple unspecified drugs, medicaments and biological substances, initial encounter; I49.3 Ventricular premature depolarization; E83.42 Hypomagnesemia; E87.6 Hypokalemia; E78.5 Hyperlipidemia, unspecified; Z96.651 Presence of right artificial knee joint; Z87.19 Personal history of other diseases of the digestive system; Z72.820 Sleep deprivation; Z91.148 Patient's other noncompliance with medication regimen for other reason; Z82.49 Family history of ischemic heart disease and other diseases of the circulatory system; Z79.899 Other long term (current) drug therapy
CPT/HCPCS: 36415; 70450; 71046; 80048; 80053; 80061; 82607; 82746; 83605; 83735; 83880; 83921; 84443; 84484; 85025; 85027; 85610; 85730; 92972; 92978; 93005; 93306; 93454; 94760; 96365; 96366; 96372; 96375; 96376; 99291